=== PATIENT | male | born 1935 | race Hispanic/Latino ===

== ENCOUNTER 2018-09-12 14:20 | Inpatient (IN) | payer OTHER ==
[2018-09-12 15:20] LABS: #Monocytes 0.5 thou/uL (0.11-0.59); #Neutrophils 4.6 thou/uL (1.40-6.50); %Basophils 0.5 % (0.0-1.0); %Eosinophils 0.4 % (0.0-10.0); %Monocytes 7.6 % (0.0-10.0); %Neutrophils 75.5 % (42.0-75.0); Hemoglobin 10.9 g/dL (14.0-18.0); Mean Corpuscular HGB CONC 33.1 g/dL (32.0-36.0); Mean Corpuscular Hemoglobin 31.4 pg (27.0-31.0); Mean Corpuscular Volume 94.8 fL (78.0-98.0); Mean Platelet Volume 6.4 fL (7.4-10.4); Platelet Count 283 thou/uL (130-400); Red Blood Cell (RBC) Count 3.48 mill/uL (4.70-6.10)
--- NOTE | 2018-09-12 15:37 | RAD ---
Chest AP view INDICATION: Hypoxemia COMPARISON: None FINDINGS: Lungs:The lungs are clear Cardiac silhouette pulmonary vasculature:The cardiomediastinal silhouette appears within normal limit s. Pleural spaces:No pleural effusion or pneumothorax is demonstrated. Upper abdomen:There is a gas-filled intercalated large bowel underlies the right hemidiaphragm. Gas-f illed stomach underlies the left hemidiaphragm. Osseous structures: No acute osseous abnormality. Additional findings:None. IMPRESSION: No acute cardiopulmonary abnormality.
[2018-09-12 15:43] LABS: ALT (SGPT) 8 U/L (8-55); AST (SGOT) 15 U/L (5-34); Albumin 2.2 g/dL (3.4-4.8); Alkaline Phosphatase 127 U/L (40-150); Anion Gap 14 mmol/L (10-20); BUN (Urea Nitrogen) 23 mg/dL (8.4-25.7); Bilirubin, Total 0.5 mg/dL (0.2-1.2); Calc. Creatinine Clearance 0 mL/min (70-130); Carbon Dioxide 24 mmol/L (23-31); Chloride 105 mmol/L (98-107); Estimated GFR-MDRD 38; Globulin 3.2 g/dL (2.4-3.5); Glucose 83 mg/dL (83-110); Potassium 3.3 mmol/L (3.5-5.1); Protein, Total 5.4 g/dL (5.8-8.1); Sodium 140 mmol/L (136-145)
[2018-09-12 15:58] LABS: Calcium 5.3 mg/dL (7.8-10.44)
[2018-09-12] MEDS ORDERED: Calcium Gluc 4.6 MEQ/10 ML (100 MG/ML) ONE (16:38)
[2018-09-12] MEDS ORDERED: Magnesium 2 GM/50 ML BAG (IN WATER) ONE (17:37)
[2018-09-12] MEDS ORDERED: Aspirin Chewable 81 MG TAB ONE (19:09)
[2018-09-12] MEDS ORDERED: HYDROcodone/Acetaminophen 5/325 mg Tablet PO PRN ×2 (19:20)
[2018-09-12] MEDS ORDERED: Ondansetron ODT 4 MG TAB SL PRN (19:20)
[2018-09-12] MEDS ORDERED: Acetaminophen 325 MG TAB PO PRN ×2 (19:20→19:37)
[2018-09-12] MEDS ORDERED: Ondansetron PF 4 MG/2 ML Vial IVP PRN (19:20)
[2018-09-12 19:29] LABS: CKMB 2.9 ng/mL (0-6.6)
[2018-09-12] MEDS ORDERED: Sodium Chloride 0.9% 1,000 ML IV SCH (19:30)
[2018-09-12] MEDS ORDERED: Guaifenesin DM 100-10/5 ML UDCUP PO PRN (19:37)
[2018-09-12] MEDS ORDERED: Senokot S 8.6-50 MG TAB PO PRN (19:37)
[2018-09-12] MEDS ORDERED: Bisacodyl 10 MG SUPP PR PRN (19:37)
[2018-09-12] MEDS ORDERED: Diltiazem 125 MG in Sodium Chloride 0.9% 100 ML IVPB SCH (19:45)
--- NOTE | 2018-09-12 20:49 | HP ---
REASON FOR ADMISSION: AFib with RVR, hypocalcemia, possible acute kidney injury , hypokalemia, hypoalbuminemia, likely chronic. HISTORY OF PRESENTING ILLNESS: The patient gives history of feeling dizzy this morning. He was about to faint. He was leaning onto the wall and somebody held him. He was checked for saturations and it was 70% in the detention facility. He was placed on 2 L nasal cannula and brought here. The patient states he has had a chronic history of dizziness. Has no complaints of chest pain or palpitation. No complaints of shortness of breath. He appears ill. He is also a very poor historian. 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 He has been in the detention system for last 32 years or so now. No history of cough or expectoration. No history of fever. No complaints of abdominal pain, diarrhea, or vomiting. PAST MEDICAL AND SURGICAL HISTORY: The papers accompanying the patient from detention system states that he has history of AFib/flutter, chronic anemia, history of Crohn disease, which the patient states was diagnosed on colonoscopy where they found blisters 2 years back. Chronic edema, benign prostatic hypertrophy, GERD, chronic pain in his ankle and foot with unclear diagnosis per detention facility. CURRENT MEDICATIONS: These have not accompanied the patient and I will try to obtain the same from the detention facility. The patient does not remember what medications he is on. ALLERGIES: HE STATES HE IS NOT ALLERGIC TO ANY MEDICATIONS. PERSONAL HISTORY: Does not abuse alcohol or drugs. No history of smoking. The patient has been in detention from last 32 years. FAMILY HISTORY: Mother at the age of 55 years, likely from [place] as far as he knows. Father at the age of 73 years from natural causes as far as he knows. He states he is single. He apparently has 7 grand kids, but no children as such. They all live in [place]. He has a niece, who lives in [place]. CODE STATUS: Full. REVIEW OF SYSTEMS: CONSTITUTIONAL: Negative for weight loss or gain, ability to conduct usual activities. SKIN: Negative for rash, itching. EYES: Negative for double vision, pain. ENT/MOUTH: Negative for nose bleeding, neck stiffness, pain, tenderness. CARDIOVASCULAR: Negative for palpitations, dyspnea on exertion, orthopnea. RESPIRATORY: Negative for shortness of breath, wheezing, cough, hemoptysis, fever or night sweats. GASTROINTESTINAL: Negative for poor appetite, abdominal pain, heartburn, nausea , vomiting, constipation, or diarrhea. GENITOURINARY: Negative for urgency, frequency, dysuria, nocturia. MUSCULOSKELETAL: Negative for pain, swelling. NEUROLOGIC/PSYCHIATRIC: Negative for anxiety, depression. ALLERGY/IMMUNOLOGIC: Negative for skin rash, bleeding tendency. PHYSICAL EXAMINATION: GENERAL: The patient is an 83-year-old male, who is currently not in any acute distress. VITAL SIGNS: Blood pressure 110/32, later dropped down to 90/60 after getting Cardizem IV push and is back up to 106 at present that is the systolic; pulse 116 per minute; respiratory rate 18 per minute; saturating 100% on room air; temperature is 98.8 degrees Fahrenheit. NECK: Supple. No elevated JVD. HEENT: Eyes; extraocular muscles intact. Pupils are reacting to light. Oral cavity, mucous membranes are dry. No exudates or congestion. CARDIOVASCULAR: S1 and S2 heard. Irregular rhythm. RESPIRATORY: Air entry 1+ bilateral. Scattered rhonchi plus bilateral. No rales or wheezes. ABDOMEN: Soft. Bowel sounds heard. No tenderness, rigidity, or guarding. EXTREMITIES: There is 1+ peripheral edema. No calf tenderness. VASCULAR: Peripheral pulses 1+ bilateral. No ischemic ulcerations or gangrene. CENTRAL NERVOUS SYSTEM: No gross focal deficits noted. The patient is awake and responds well to verbal questions. He is not fully oriented. PSYCHIATRIC: No obvious hallucinations or delusions. LABORATORY DATA: EKG done shows AFib with RVR at 130 beats per minute. Chest x -ray done shows no acute cardiopulmonary abnormality. White count of 6, H and H of 10 and 33, platelet count 283, MCV is 94 with 75% neutrophils. Potassium 3.3, serum bicarb 24, BUN 23, creatinine 1.7, serum glucose 83, calcium level is 5.3, albumin is 2.2, corrected calcium is around 6.4. Troponin I of 0.04, CK-MB 2.9. Alkaline phosphatase 127, total protein is 5.4, globulin is 3.2. CLINICAL IMPRESSION AND PLAN: The patient will be admitted to telemetry for atrial fibrillation with rapid ventricular response. He is currently under observation and will likely be switched over to inpatient status if his current electrolyte abnormality and atrial fibrillation does not get controlled in the next 24 hours. He has received magnesium sulfate 2 g IV x1 in the ER, calcium gluconate 2 g IV in the ER, Cardizem IV push 5 mg and 10 mg IV push. We will continue him at 5 mg an hour Cardizem drip and add Lopressor 25 mg twice daily. Aspirin 81 mg will be continued from tomorrow. The patient has reversal of his albumin-globulin ratio and has very low protein levels. The patient likely is chronically malnourished. He also carries a diagnosis of Crohn disease, but states he passes stool only once at night and it is semi solid as far as he knows. There is no blood or mucus in it as far as he knows. Again, the patient is a very poor historian. He also has chronic dizziness. We will obtain MRI brain to rule out posterior fossa infarct. A CT of the abdomen and pelvis in view of low calcium, low albumin, to rule out mass. Urine and protein electrophoreses will be obtained as well. Echo with 2D Doppler for left ventricular function and to rule out thrombus. Iron indices, ferritin levels, human immunodeficiency virus, acute hepatitis panel, PSA levels, TB QuantiFERON, vitamin D 1,25 and 25-hydroxy levels, and intact PTH levels will be obtained as well. We will try to obtain his medication list from his detention unit. The patient appears chronically ill as well. He is 83 years old. He apparently lives in the general detention population per correction officers who are here in the room. We will consult Dr. Sousa who is on-call for Cardiology. He wants to be a full code. Job ID: [id number] MTDD
[2018-09-12] MEDS ORDERED: Famotidine 20 MG TAB PO SCH (21:00)
[2018-09-12 21:11] LABS: INR-International Normal Ratio 1.1; PTT 26.1 SEC (22.9-36.1); Prothrombin Time 14.1 SEC (12.0-14.7)
[2018-09-12 21:17] LABS: Phosphorus 2.4 mg/dL (2.3-4.7)
[2018-09-12 21:19] LABS: Magnesium 1.3 mg/dL (1.6-2.6)
[2018-09-12 21:39] LABS: Ferritin 144.04 ng/mL (22-322)
[2018-09-12 21:52] LABS: Folate (Folic Acid) 8.3 ng/mL (7.0-31.4)
[2018-09-12] MEDS: Calcium Carbonate 500 MG ChewTAB PO SCH (22:13)
--- NOTE | 2018-09-12 22:14 | CT ---
CT abdomen and pelvis noncontrast HISTORY: Abdominal pain. COMPARISON: 06/24/2015. FINDINGS: There is atrophy of the cortex of each kidney. No urinary tract obstruction or calcificatio n are apparent. Lack of IV contrast limits evaluation of the soft tissues. Oral contrast was administered. No evidenc e of bowel obstruction. Cysts of the kidneys and liver. Calcification within the arterial structures. Urinary bladder is unremarkable. Subtle circumferential wall thickening involving a loop of jejunum in the left midabdomen. Stranding in the adjacent fat. Less prominent scattered areas of short segment circumferential wall thickening involves the small bowel throughout the remainder of th e abdomen. No focal abnormalities of the pancreas are apparent. IMPRESSION: No evidence of bowel obstruction. Subtle scattered areas of segmental small bowel wall th ickening. A nonspecific finding. Inflammatory bowel disease must be considered. Atherosclerosis.
[2018-09-12 22:18] LABS: Troponin I 0.056 ng/mL (< 0.028)
[2018-09-12] MEDS: Metoprolol Tartrate 25 MG TAB PO SCH (22:23)
[2018-09-12 23:34] LABS: Bilirubin Small (Negative); Blood, Urine Negative (Negative); Glucose, Urine (Dipstick) Negative (Negative); Leukocyte Negative (Negative); Nitrite Negative (Negative); Protein, Urine (Dipstick) 30 mg/dL (Neg-Trace); Urobilinogen 0.2 mg/dL (Less than 2)
[2018-09-12 23:41] LABS: Bacteria/HPF None Seen HPF (None Seen); Clarity Clear (Clear); RBC/HPF None Seen HPF (0-3); Squamous Epithelial 0-3 HPF (0-3); Urine Culture Reflex No No; WBC/HPF 0-3 HPF (0-3)
[2018-09-13 00:28] LABS: HBCM Index 0.05 S/CO (0-0.79); HBSAg Index 0.29 S/CO (0-0.99); HIV (1/2) Antibody/Antigen Non-Reactive (NonReactive); HIV 1/2 INDEX 0.13 S/CO (<1.00); Hep A IgM AB Non-Reactive (NonReactive); Hep B Surf Ag Non-Reactive S/CO (NonReactive); Hep C IgG Ab Non-Reactive (NonReactive); Hepatitis B Core IgM Abs Non-Reactive (NonReactive); PSA-Asymptomatic (SCREENING) 4.88 ng/mL (0-4.0); Vitamin D, 25 Hydroxy Less than 3.4 ng/ml (> 30.0)
[2018-09-13 01:49] LABS: Troponin I 0.074 ng/mL (< 0.028)
[2018-09-13 05:57] LABS: #Eosinphils 0.1 thou/uL (0.0-0.7); #Lymphocytes 1.4 thou/uL (1.20-3.40); #Monocytes 0.4 thou/uL (0.11-0.59); #Neutrophils 2.3 thou/uL (1.40-6.50); %Basophils 1.1 % (0.0-1.0); %Eosinophils 1.6 % (0.0-10.0); %Monocytes 9.3 % (0.0-10.0); %Neutrophils 54.1 % (42.0-75.0); Hemoglobin 10.4 g/dL (14.0-18.0); Mean Corpuscular HGB CONC 32.8 g/dL (32.0-36.0); Mean Corpuscular Hemoglobin 31.5 pg (27.0-31.0); Mean Corpuscular Volume 96.1 fL (78.0-98.0); Mean Platelet Volume 6.7 fL (7.4-10.4); Platelet Count 252 thou/uL (130-400); RBC Distribution Width 13.1 % (11.5-14.5); Red Blood Cell (RBC) Count 3.29 mill/uL (4.70-6.10); White Blood Cell (WBC) Count 4.2 thou/uL (4.8-10.8)
[2018-09-13 06:19] LABS: ALT (SGPT) 8 U/L (8-55); AST (SGOT) 16 U/L (5-34); Alkaline Phosphatase 120 U/L (40-150); Anion Gap 11 mmol/L (10-20); BUN (Urea Nitrogen) 22 mg/dL (8.4-25.7); Bilirubin, Total 0.3 mg/dL (0.2-1.2); Calc. Creatinine Clearance 30 mL/min (70-130); Carbon Dioxide 23 mmol/L (23-31); Chloride 108 mmol/L (98-107); Estimated GFR-MDRD 46; Globulin 3.1 g/dL (2.4-3.5); Glucose 69 mg/dL (83-110); Protein, Total 5.1 g/dL (5.8-8.1); Sodium 139 mmol/L (136-145)
[2018-09-13 06:22] LABS: Calcium 5.5 mg/dL (7.8-10.44)
[2018-09-13] MEDS ORDERED: Enoxaparin Sodium 40 MG/0.4 ML SYRINGE SC SCH (09:00)
[2018-09-13] MEDS ORDERED: Digoxin 0.5 MG/2 ML AMP ONE (09:55)
[2018-09-13] MEDS ORDERED: Calcium Chloride 1 GM/10 ML Abboject SYRINGE IVP SCH (10:00)
[2018-09-13] MEDS ORDERED: Digoxin 0.5 MG/2 ML AMP SLOW IVP SCH (10:00)
[2018-09-13] MEDS: Calcium Carbonate 500 MG ChewTAB PO SCH ×2 (10:36→20:47)
[2018-09-13] MEDS: Calcitriol 0.25 MCG CAP PO SCH (10:37)
[2018-09-13] MEDS: Aspirin 81 mg Enteric Coated Tablet PO SCH (10:37)
[2018-09-13] MEDS: Metoprolol Tartrate 25 MG TAB PO SCH ×2 (10:37→21:30)
[2018-09-13] MEDS: Ergocalciferol 1.25 MG(50,000 UNITS) CAP PO SCH (11:07)
--- NOTE | 2018-09-13 11:35 | PDOC.HOSPP ---
- Subjective Subjective: has rvr with rates going upto 160's, does not c/o palp or chest pain or sob ate his breakfast this am has no specific complaints - Objective Vital Signs & Weight: Vital Signs (12 hours) Temp Pulse Resp BP Pulse Ox 09/13/18 10:58 150 H 09/13/18 10:35 99 09/13/18 08:00 98.4 F 90 18 91/61 100 09/13/18 03:55 98.1 F 99 18 101/69 98 09/13/18 00:30 101 H 14 98/62 100 Weight Weight 121 lb 8 oz Result Diagrams: 09/13/18 05:00 09/13/18 05:00 ROS - Review of Systems All systems: All other ROS were reviewed and found negative. - Medication Medications: Active Medications Generic Name Dose Route Start Last Admin Trade Name Freq PRN Reason Stop Dose Admin Aspirin 81 mg 09/13/18 09:00 09/13/18 10:37 Ecotrin PO 81 mg DAILY ELIE Administration Calcitriol 0.25 mcg 09/13/18 09:00 09/13/18 10:37 Rocaltrol PO 0.25 mcg DAILY ELIE Administration Calcium Carbonate 1,000 mg 09/12/18 21:00 09/13/18 10:36 Tums PO 1,000 mg BID ELIE Administration Calcium Chloride 1 gm 09/13/18 10:00 09/13/18 11:07 Calcium Chloride IVP 09/13/18 12:00 1 gm NOW ELIE Administration Cholecalciferol 1,000 units 09/13/18 09:00 09/13/18 10:37 Vitamin D3 PO 1,000 units DAILY ELIE Administration Digoxin 0.25 mg 09/13/18 10:00 09/13/18 10:35 Lanoxin SLOW IVP 09/13/18 12:00 0.25 mg NOW ELIE Administration Enoxaparin Sodium 40 mg 09/13/18 09:00 09/13/18 10:38 Lovenox SC 40 mg 0900 ELIE Administration Ergocalciferol 1.25 mg 09/13/18 09:00 09/13/18 11:07 Drisdol PO 1.25 mg Q7DAYS ELIE Administration Magnesium Sulfate 1 gm/ Sodium 102 mls @ 100 mls/hr 09/13/18 10:00 09/13/18 10:38 Chloride IVPB 09/13/18 12:00 102 mls NOW ELIE Administration Metoprolol Tartrate 25 mg 09/12/18 21:00 09/13/18 10:37 Lopressor PO Not Given BID ELIE Sodium Chloride 10 ml 09/12/18 21:00 09/13/18 11:07 Flush - Normal Saline IVF 10 ml Q12HR ELIE Administration - Exam NAD, awake alert Eye: PERRL, anicteric sclera ENT: no oropharyngeal lesions, moist mucosa Neck: supple, no JVD Heart: no murmur, irregular Respiratory: CTAB, no rales Gastrointestinal: soft, non-tender, normal bowel sounds Extremities: no cyanosis, no edema Neurological: CN's grossly intact, no focal deficits Psychiatric: normal affect, A&O x 3 Hosp A/P (1) Atrial fibrillation with RVR Code(s): I48.91 - UNSPECIFIED ATRIAL FIBRILLATION Status: Acute (2) Severe malnutrition Code(s): E43 - UNSPECIFIED SEVERE PROTEIN-CALORIE MALNUTRITION Status: Chronic (3) multiple electrolyte abnormalities Status: Acute (4) Hypocalcemia Code(s): E83.51 - HYPOCALCEMIA Status: Acute (5) AGUSTIN (acute kidney injury) Code(s): N17.9 - ACUTE KIDNEY FAILURE, UNSPECIFIED Status: Acute (6) Metabolic acidosis Code(s): E87.2 - ACIDOSIS Status: Acute (7) Chronic anemia Code(s): D64.9 - ANEMIA, UNSPECIFIED Status: Chronic (8) Nutritional deficiency Code(s): E63.9 - NUTRITIONAL DEFICIENCY, UNSPECIFIED Status: Chronic - Plan replace electrolytes, Ca and Mg iv, oral tums bid, mgo bid digoxin 0.5mg x1 iv now is off cardizem drip for hypotension echo pending MRI brain is pending, has long h/o dizziness asp, lopressor overall prognosis guarded
--- NOTE | 2018-09-13 14:52 | MRI ---
MRI Brain WO Con: 09/13/2018 12:00 AM CLINICAL HISTORY: Dizziness Rule out CVA. TECHNIQUE: Multiplanar, multisequence images were obtained of the brain. COMPARISON: None. FINDINGS: Motion artifact heavily limits image detail Extra axial spaces: There is [id number] generalized cerebral and cerebellar atrophy. Hemorrhage: None. Ventricular system: Normal in size and morphology for the patient's age. Basal cisterns: Normal. Cerebral parenchyma: There is mild chronic small vessel white matter ischemic change. Midline shift: None. Cerebellum: Normal. Brainstem: Normal. OTHER: Calvarium: There are bilateral mastoid effusions. Vascular system: Normal. Visualized Paranasal sinuses: There is mild mucosal thickening ethmoid air cells. Visualized Orbits: Normal. Visualized upper cervical spine: Normal. Sella and skull base: Normal. IMPRESSION: 1. No acute intracranial abnormality. 2. Mild to moderate generalized cerebral and cerebellar atrophy. 3. Mild chronic small vessel white matter ischemic change 4. Bilateral mastoid effusions.
[2018-09-13] MEDS: Digoxin 0.5 MG/2 ML AMP SLOW IVP SCH ×2 (16:44→22:04)
--- NOTE | 2018-09-13 18:38 | CON ---
DATE OF CONSULTATION: 09/13/2018 INDICATION FOR CONSULTATION: An 83-year-old patient with atrial fibrillation with rapid ventricular response. We are asked to see the patient to assist with control of atrial fibrillation. HISTORY OF PRESENT ILLNESS: This is an 83-year-old gentleman, who has been in the [facility] system for over 30 years and has a history of chronic atrial fibrillation. According to the records from the [facility], he was presented after he had an episode of being dizzy. He almost passed out. He was found to have a decrease in O2 saturations. He was admitted here, was found to have some atrial fibrillation with rapid ventricular response. Also was found to have hypokalemia and hypocalcemia as well. He also had decreased O2 saturations, which now have improved. He did also explain that he had one short episode lasting for just a few seconds. Also some chest discomfort, which was sharp, sudden onset, and then resolved. He has a long history of also Crohn disease. Fortunately, he is not on any medications at the facility for his atrial fibrillation or Crohn disease. He also has a history of chronic anemia. At this time, he is pain free. His heart rate has been somewhat better controlled after being given IV digoxin. He was given IV diltiazem and became hypotensive. He has also been placed on low-dose of a beta amelia, which he seems to be tolerating at this time. PAST MEDICAL HISTORY: Significant for atrial fibrillation and flutter, anemia, Crohn disease, chronic edema, chronic anemia as well as benign prostatic hypertrophy, and gastroesophageal reflux disease. He has chronic pain in the left ankle after a previous injury. SOCIAL HISTORY: He has been in the [facility] system for over 30 years. He has no alcohol or tobacco abuse. FAMILY HISTORY: Noncontributory. ALLERGIES: NONE. MEDICATIONS: Prior to admission were none. 1. At this time, he has been placed on magnesium. 2. He has been given magnesium and calcium. 3. He was tried on diltiazem, Lopressor 25 b.i.d., aspirin 81 mg a day, and was given a dose of digoxin. 4. He has also been given calcium replacements. 5. He has also been given Lovenox just for DVT prophylaxis as well as Pepcid and other p.r.n. medications. REVIEW OF SYSTEMS: He has decreased hearing. He complained of no significant chest pain or shortness of breath. No GI complaints except for the chronic Crohn disease. He does have occasional episodes of fecal incontinence apparently. He denies any urinary problems. Musculoskeletal, he complains of left ankle pain, has difficulty walking and usually walks with a walker. He also has right knee pain due to arthritis. He has had no history of seizures or syncope. PHYSICAL EXAMINATION: GENERAL: Reveals an elderly, thin, malnourished patient. VITAL SIGNS: Blood pressure 101/69 and heart rate is anywhere between 99 to 150, it is better controlled after being given digoxin and beta blockers. He is afebrile. Respiratory rate is 18. HEENT: Reveals head to be normocephalic and atraumatic. Carotid pulses are present. Did not hear any bruits. CHEST: Clear to auscultation without rales, rhonchi, or wheezing. CARDIOVASCULAR: Heart sounds are somewhat distant. He has an irregularly irregular rhythm. I do not hear any gross murmurs. ABDOMEN: Soft and nontender. EXTREMITIES: Showed no clubbing or cyanosis. He does have evidence of arthritis in right knee and also stiffness of the left ankle. Pedal pulses are difficult to palpate. However, the patient is in restraints. It was unable to adequately evaluate the pedal pulses. NEUROLOGIC: The patient appears to be intact. I do not see any gross focal motor deficits of the patient. He does have normal sensation. SKIN: Warm and dry. PSYCHIATRIC: His psychosocial status appears to be relatively stable. LABORATORY DATA: EKG shows atrial fibrillation with a rapid ventricular response. At times, almost appears to be in SVT, this may be actually flutter. He may have atrial fibrillation and flutter. There was some mention previously in his past medical records from after discussion with the Medical Department at [facility] that he may also have some atrial flutter. There has been no sinus rhythm since the patient has been here. Chest x-ray was unremarkable. IMPRESSION AND PLAN: 1. Atrial fibrillation, possible at times flutter with rapid ventricular response. We will continue medical management to hopefully decrease the heart rate and maintain this whether or not the patient has been refusing taking medications or just not been given medications due to various reasons, it is unclear, but he certainly will need something for rate control in this gentleman. We will also consider whether or not he is a candidate for anticoagulation. However, he has chronic anemia and Crohn disease, it is highly unlikely he will be able to tolerate medications. I do not know if he has had any GI workup in the past. We will continue to follow this. 2. Crohn disease, which will be dealt with by the Primary Care Service. He may need to have GI evaluation. 3. Renal insufficiency. We are uncertain whether or not this is a new finding or not, but the creatinine has improved since yesterday. He may have been slightly dehydrated, but his BUN was 23 with a creatinine 1.7. This morning, creatinine is 1.47, has improved after volume replacement. 4. Hypokalemia and hypocalcemia. Both of these will be replaced and would advise to repeat these levels, this may be due to some diarrhea in the patient due to his Crohn disease and also due to malnutrition. His laboratory data also showed a BNP of 212, which is slightly elevated. He may have diastolic dysfunction. I believe an echocardiogram has been ordered. We will evaluate the echocardiogram and further recommendations will depend on the results of the echocardiogram. 5. Chronic anemia. This most likely is due to his Crohn disease, but may need further evaluation. At this time, I will continue his medications with the low-dose beta blockers. He may not be able to tolerate the digoxin due to his renal insufficiency. He has only had one dose of 0.25 mg and I will continue to at least digitalize the patient. This would not be a contraindication event if he has renal insufficiency, just to load the patient with digoxin and see if his rate will be under better control, but we will continue low-dose of beta blockers. If he is not able to tolerate diltiazem, depending on the echocardiogram results, even he may be a candidate for ablation of the AV node. If we cannot control the heart rate, but then would require pacemaker insertion. Hopefully, would not come to that. Job ID: [id number]
[2018-09-13] MEDS ORDERED: Carvedilol 3.125 MG TAB PO SCH (19:30)
--- NOTE | 2018-09-13 19:54 | RAD ---
Right hand 3 views HISTORY: Fall. Hand injury. FINDINGS: Mild joint space narrowing and osteophytosis. Osseous structures are markedly demineralized . No acute fracture or dislocation are apparent. Calcification within the arterial structures. IMPRESSION: No acute osseous abnormalities are demonstrated Osteoporosis. Atherosclerosis.
--- NOTE | 2018-09-13 19:58 | RAD ---
RIGHT ELBOW TWO VIEWS: INDICATIONS: History of fall; rule out fracture. COMPARISON: None. FINDINGS: No definite acute fracture or subluxation is evident. No roberto joint capsular distention is evident. There is some enthesopathic change of the olecranon. IMPRESSION: 1. No definite acute osseous abnormality. 2. Olecranon enthesopathy. POS: BH
--- NOTE | 2018-09-13 20:01 | RAD ---
RIGHT FOREARM TWO VIEWS: INDICATIONS: Fall. Rule out fracture. COMPARISON: None. FINDINGS: There is enthesopathic change of the olecranon. No acute fracture or subluxation is evident. There is diffuse osteopenia. There are scattered vascular calcifications. IMPRESSION: No acute osseous abnormality. POS: BH
[2018-09-13] MEDS: Famotidine 20 MG TAB PO SCH (20:48)
[2018-09-14] MEDS: Calcitriol 0.25 MCG CAP PO SCH (08:11)
[2018-09-14] MEDS: Calcium Carbonate 500 MG ChewTAB PO SCH ×2 (08:11→20:59)
[2018-09-14] MEDS: Aspirin 81 mg Enteric Coated Tablet PO SCH (08:11)
[2018-09-14] MEDS ORDERED: Enoxaparin Sodium 30 MG/0.3 ML SYRINGE SC SCH (09:00)
[2018-09-14 09:01] LABS: #Lymphocytes 0.9 thou/uL (1.20-3.40); #Monocytes 0.4 thou/uL (0.11-0.59); #Neutrophils 2.3 thou/uL (1.40-6.50); %Basophils 0.5 % (0.0-1.0); %Eosinophils 0.8 % (0.0-10.0); %Monocytes 10.6 % (0.0-10.0); %Neutrophils 63.1 % (42.0-75.0); Hemoglobin 10.8 g/dL (14.0-18.0); Mean Corpuscular HGB CONC 32.3 g/dL (32.0-36.0); Mean Corpuscular Hemoglobin 31.3 pg (27.0-31.0); Mean Platelet Volume 7.6 fL (7.4-10.4); Platelet Count 215 thou/uL (130-400); Red Blood Cell (RBC) Count 3.44 mill/uL (4.70-6.10); White Blood Cell (WBC) Count 3.6 thou/uL (4.8-10.8)
[2018-09-14 09:20] LABS: ALT (SGPT) 7 U/L (8-55); AST (SGOT) 16 U/L (5-34); Albumin 1.8 g/dL (3.4-4.8); Alkaline Phosphatase 108 U/L (40-150); Anion Gap 10 mmol/L (10-20); BUN (Urea Nitrogen) 20 mg/dL (8.4-25.7); Bilirubin, Total 0.5 mg/dL (0.2-1.2); Calc. Creatinine Clearance 34 mL/min (70-130); Carbon Dioxide 22 mmol/L (23-31); Chloride 107 mmol/L (98-107); Estimated GFR-MDRD 52; Globulin 3.1 g/dL (2.4-3.5); Glucose 64 mg/dL (83-110); Magnesium 1.4 mg/dL (1.6-2.6); Potassium 3.4 mmol/L (3.5-5.1); Protein, Total 4.9 g/dL (5.8-8.1); Sodium 136 mmol/L (136-145)
[2018-09-14] MEDS: Metoprolol Tartrate 25 MG TAB PO SCH (09:23)
[2018-09-14 09:30] LABS: Calcium 5.6 mg/dL (7.8-10.44)
[2018-09-14] MEDS: Carvedilol 3.125 MG TAB PO SCH ×2 (09:41→17:52)
--- NOTE | 2018-09-14 11:13 | PDOC.CTH ---
Cardiology Progress Note - Subjective The pt seen and examined. No overnight events. No cardiac complaints. - Objective Vital Signs Temp Pulse Resp BP BP Pulse Ox 09/14/18 08:06 97.7 F 96 18 95/63 98 09/14/18 04:00 97.3 F L 95 20 82/58 L 82/58 L 99 Weight 122 lb 09/13/18 09/14/18 09/15/18 06:59 06:59 06:59 Intake Total 480 Output Total 352 Balance 128 - Physical Examination General/Neuro: alert & oriented x3 Neck: no JVD present Lungs: CTA Heart: other: (irregular) Abdomen: soft Extremities: other: (No edema) - Telemetry Telemetry Rhythm: afib with HR 90-100s - Labs Result Diagrams: 09/14/18 08:40 09/14/18 08:40 Troponin/CKMB CK-MB (CK-2) 2.9 ng/mL (0-6.6) 09/12/18 18:28 Troponin I 0.074 ng/mL (< 0.028) H 09/13/18 01:15 - Assessment/Plan 1. Afib with RVR - HR well controlled with Coreg 3.125mg 1/2 tab BID; On ASA 81mg qd; no OAC due to hx of chronic Anemia and Crohn disease. 2. 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 EP consult for low EF. 3. AGUSTIN - unchanged 4. Hypokalemia 5. Hypocalcemia - 6. Crohn disease 7. Chronic Anemia 8. BPH 9. Dizziness MAR reviewed * Echo on 09/13/2018 with EF 20-25%, grade I dd, Afib, mod dilated LA, mild ERA , mild MR, and trace AR. Pt. seen and eval. by me. He denies any cardiac complaints. I spoke with the [facility] and he can have a Life-Vest apparently. This would be indicated with the severe decr. in the EF. I am uncertain of the etiology. He would either benefit from a stress test to evaluate for ischemia or a cardiac cath to evaluate the coronary status as a possible etiology of the CMY. The BP has been on the low side today and the Coreg is at a low dose. The HR is improved. The renal function is also improved and I will continue low dose digoxin for rate control and stop the diltiazem with the decr. EF. He does not have CHF symptoms at this time. With the Afib and a history of Chrons dz. he is somewhat at risk for OAC but not an absolute contraindication. i would like to see the Ca and K more stable prior to cardiac cath. or stress test. a stress test wpould likely give more info as to the etiology of the CMY or at least rule out severe CAD. gjm Review of Systems - Review of Systems Constitutional: reports: no symptoms reported EENTM: reports: no symptoms reported Respiratory: reports: no symptoms reported Cardiac (ROS): reports: no symptoms reported ABD/GI: reports: no symptoms reported : reports: no symptoms reported Musculoskeletal: reports: no symptoms reported
--- NOTE | 2018-09-14 16:17 | PDOC.HOSPP ---
- Objective Vital Signs & Weight: Vital Signs (12 hours) Temp Pulse Pulse Pulse Resp BP BP 09/14/18 12:33 98.1 F 97 18 09/14/18 11:40 80 102 H 82/52 L 88/62 L 09/14/18 08:06 97.7 F 96 18 BP Pulse Ox 09/14/18 12:33 123/23 L 93 L 09/14/18 11:40 09/14/18 08:06 95/63 98 Weight Admit Weight 121 lb 8 oz Weight 122 lb I&O: 09/13/18 09/14/18 09/15/18 06:59 06:59 06:59 Intake Total 480 Output Total 352 Balance 128 Result Diagrams: 09/14/18 08:40 09/14/18 08:40 ROS - Review of Systems All systems: All other ROS were reviewed and found negative. - Medication Medications: Active Medications Generic Name Dose Route Start Last Admin Trade Name Freq PRN Reason Stop Dose Admin Aspirin 81 mg 09/13/18 09:00 09/14/18 08:11 Ecotrin PO 81 mg DAILY ELIE Administration Calcitriol 0.25 mcg 09/13/18 09:00 09/14/18 08:11 Rocaltrol PO 0.25 mcg DAILY ELIE Administration Calcium Carbonate 1,000 mg 09/12/18 21:00 09/14/18 08:11 Tums PO 1,000 mg BID ELIE Administration Carvedilol 1.5625 mg 09/14/18 08:00 09/14/18 09:41 Coreg PO 1.5625 mg BID- ELIE Administration Cholecalciferol 1,000 units 09/13/18 09:00 09/14/18 08:11 Vitamin D3 PO 1,000 units DAILY ELIE Administration Enoxaparin Sodium 30 mg 09/14/18 09:00 09/14/18 08:11 Lovenox SC 30 mg 0900 ELIE Administration Ergocalciferol 1.25 mg 09/13/18 09:00 09/13/18 11:07 Drisdol PO 1.25 mg Q7DAYS ELIE Administration Famotidine 20 mg 09/13/18 21:00 09/13/18 20:48 Pepcid PO 20 mg QPM ELIE Administration Sodium Chloride 10 ml 09/12/18 21:00 09/14/18 08:11 Flush - Normal Saline IVF 10 ml Q12HR ELIE Administration - Exam Heart: RRR, no murmur, no gallops, no rubs Respiratory: CTAB, no wheezes, no rales, no ronchi Gastrointestinal: soft, non-tender, non-distended, normal bowel sounds Extremities: no cyanosis, no clubbing, no edema Neurological: CN's grossly intact, normal sensation to touch Hosp A/P (1) Atrial fibrillation with RVR Code(s): I48.91 - UNSPECIFIED ATRIAL FIBRILLATION Status: Acute (2) AGUSTIN (acute kidney injury) Code(s): N17.9 - ACUTE KIDNEY FAILURE, UNSPECIFIED Status: Acute (3) Hypocalcemia Code(s): E83.51 - HYPOCALCEMIA Status: Acute (4) Nutritional deficiency Code(s): E63.9 - NUTRITIONAL DEFICIENCY, UNSPECIFIED Status: Chronic (5) Severe malnutrition Code(s): E43 - UNSPECIFIED SEVERE PROTEIN-CALORIE MALNUTRITION Status: Chronic (6) Systolic heart failure Code(s): I50.20 - UNSPECIFIED SYSTOLIC (CONGESTIVE) HEART FAILURE Status: Acute - Plan * Atrial Fibrillation- his heart rate is better. He remains in AFIB however * Hypomagnesemia, and Hypokalemia- continue to replace * Chronic systolic heart failure- discussed with Cardiology- he may need life vest or defibrillator, this may have to be accomplished through [facility] * Malnutrition- continue nutritional support * AGUSTIN- improved * Crohn's disease- the patient at the time of my visit denied, abdominal pain, or diarrhea, however now he is complaining of some- will check stool for C. Diff , and will add Fecal leukocytes, and will monitor. He has not had treatment for this in years.
[2018-09-14] MEDS ORDERED: Calcium Gluconate 4.6 MEQ in Sodium Chloride 0.9% 100 ML IVPB SCH (16:30)
[2018-09-14] MEDS: Magnesium Oxide 400 MG TAB PO SCH (20:59)
[2018-09-14] MEDS: Famotidine 20 MG TAB PO SCH (20:59)
[2018-09-15] MEDS: Carvedilol 3.125 MG TAB PO SCH ×2 (09:26→16:12)
[2018-09-15] MEDS: Aspirin 81 mg Enteric Coated Tablet PO SCH (09:26)
[2018-09-15] MEDS: Digoxin 0.125 MG TAB PO SCH (09:26)
[2018-09-15] MEDS: Calcitriol 0.25 MCG CAP PO SCH (09:26)
[2018-09-15] MEDS: Calcium Carbonate 500 MG ChewTAB PO SCH ×2 (09:26→21:00)
[2018-09-15] MEDS: Magnesium Oxide 400 MG TAB PO SCH ×2 (09:26→21:00)
[2018-09-15] MEDS: Enoxaparin Sodium 40 MG/0.4 ML SYRINGE SC SCH (09:27)
--- NOTE | 2018-09-15 10:20 | CON ---
DATE OF CONSULTATION: REQUESTING PHYSICIAN: Veronica Paez MD REASON FOR CONSULTATION: Electrolyte abnormality secondary to hypocalcemia, hypokalemia, hypomagnesemia. IMPRESSION: 1. Multiple electrolyte deficiency. This is likely in the context of malabsorption and poor nutritional intake in this patient with GI pathology. 2. Hyperparathyroidism. This is not because of renal insufficiency. This is likely in the context of significant hypocalcemia. 3. Hypovitaminosis D also compounding the hypocalcemia as well as hyperparathyroidism. PLAN: 1. Replete calcium as well as vitamin D. We recommend use of 50,000 units of vitamin D and also to administer some active vitamin D . 2. Replete magnesium as well as the potassium. Magnesium is very important to be repleted in order to ensure that hypokalemia can be corrected. 3. The patient is to be placed on a regular diet. HISTORY OF PRESENT ILLNESS: An 83-year-old incarcerated gentleman who presented here with dizziness. He does have history of atrial fibrillation with rapid ventricular response and found to be severely hypocalcemic with elevated creatinine, hypokalemic, hypoalbuminemic, and elevated parathyroid hormone. Constellation of these findings necessitated renal consultation. PAST MEDICAL HISTORY: Significant for atrial fibrillation, aflutter, anemia, Crohn disease, reflux disease, BPH. MEDICATIONS: Reviewed and as documented on [employer]. ALLERGIES: NO KNOWN DRUG ALLERGIES. SOCIAL HISTORY: No alcohol, no tobacco, no illicit drug use. The patient has been incarcerated for the past 32 years. FAMILY HISTORY: Not significantly related to present illness. REVIEW OF SYSTEMS: Highly limited given that this patient is a very poor historian. PHYSICAL EXAMINATION: GENERAL: The patient was found to be somewhat ill looking, noted with the following vital signs. VITAL SIGNS: Afebrile, temperature 97.8, pulse 100, respiratory rate of 18, O2 saturation 100% with a blood pressure of . HEENT: Unremarkable. CARDIOVASCULAR: First and second heart sounds were heard. RESPIRATORY: Clear to auscultation. DIGESTIVE: Revealed a benign abdomen with positive bowel sounds. EXTREMITIES: No peripheral edema. SKIN: No new gross rash. LYMPHATICS: No peripheral lymphadenopathy. SUMMARY: An 83-year-old incarcerated gentleman who presented here and noted to have multiple electrolyte context of GI obstruction/malabsorption syndrome. Thank you for this consultation. We will follow with you. Job ID: [id number]
[2018-09-15 12:43] LABS: Anion Gap 6 mmol/L (10-20); BUN (Urea Nitrogen) 21 mg/dL (8.4-25.7); Calc. Creatinine Clearance 43 mL/min (70-130); Carbon Dioxide 28 mmol/L (23-31); Chloride 106 mmol/L (98-107); Estimated GFR-MDRD 70; Glucose 74 mg/dL (83-110); Magnesium 1.6 mg/dL (1.6-2.6); Potassium 3.4 mmol/L (3.5-5.1); Sodium 137 mmol/L (136-145)
[2018-09-15 12:49] LABS: Calcium 5.7 mg/dL (7.8-10.44)
[2018-09-15 13:10] LABS: Alpha 2 - Ur 13.8 % (.); Beta-Ur 23.3 % (.); Gamma-Ur 25.8 % (.); M-Spike,% Not Observed % (Not Observed); Protein, Urine 20.6 mg/dL (Not Estab.)
[2018-09-15 13:10] LABS: A/G Ratio 0.7 (0.7-1.7); Albumin 1.9 g/dL (2.9-4.4); Alpha 1 0.2 g/dL (0.0-0.4); Alpha 2 0.6 g/dL (0.4-1.0); Beta 0.8 g/dL (0.7-1.3); Gamma 1.2 g/dL (0.4-1.8); Globulin, Total 2.9 g/dL (2.2-3.9); M-Spike Not Observed g/dL (Not Observed)
--- NOTE | 2018-09-15 13:13 | PDOC.CTH ---
Cardiology Progress Note - Subjective The pt seen and examined. No overnight events. No cardiac complaints. - Objective Vital Signs Temp Pulse Resp BP BP Pulse Ox 09/15/18 12:00 97.9 F 86 18 91/59 L 09/15/18 07:41 97.7 F 92 18 92/58 L 100 09/15/18 03:05 98.6 F 99 18 82/59 L 97 Admit Weight 121 lb 8 oz Weight 119 lb 6.4 oz 09/14/18 09/15/18 09/16/18 06:59 06:59 06:59 Intake Total 480 1650 Output Total 352 1005 Balance 128 645 - Physical Examination General/Neuro: alert & oriented x3 Neck: no JVD present Lungs: CTA Heart: other: (irregular) Abdomen: soft Extremities: other: - Telemetry Telemetry Rhythm: Afib - Labs Result Diagrams: 09/14/18 08:40 09/16/18 07:51 Troponin/CKMB CK-MB (CK-2) 2.9 ng/mL (0-6.6) 09/12/18 18:28 Troponin I 0.074 ng/mL (< 0.028) H 09/13/18 01:15 - Assessment/Plan 1. Afib with RVR - HR well controlled with Coreg 3.125mg 1/2 tab BID; On ASA 81mg qd and Digoxin 0.125mg qd; no OAC due to hx of chronic Anemia and Crohn disease. 2. 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 EP consult for low EF. Possible cath or stress test once his Ca and K level are more stable; 3. AGUSTIN - unchanged 4. Hypokalemia - seen by torch cutter 5. Hypocalcemia - seen by torch cutter 6. Crohn disease 7. Chronic Anemia 8. BPH 9. Dizziness MAR reviewed * Echo on 09/13/2018 with EF 20-25%, grade I dd, Afib, mod dilated LA, mild ERA , mild MR, and trace AR. <addendum> The pt reported he weighed >180 lbs, which his is 119 lbs now. Will get the pt record from [facility] (abnormal weight lost due to cancer?) pt. seen and joey;l/ by me. No complaints. Chest clear. Irreg/irreg. Does not want cardiac cath at this time. Review of Systems - Review of Systems EENTM: reports: no symptoms reported Respiratory: reports: no symptoms reported Cardiac (ROS): reports: no symptoms reported ABD/GI: reports: no symptoms reported : reports: no symptoms reported Musculoskeletal: reports: no symptoms reported Skin: reports: no symptoms reported Neurological: reports: no symptoms reported
[2018-09-15] MEDS ORDERED: Potassium Chloride 20 MEQ TAB PO SCH (14:30)
[2018-09-15] MEDS ORDERED: Calcium Gluconate 4.6 MEQ in Sodium Chloride 0.9% 100 ML IVPB SCH (14:30)
--- NOTE | 2018-09-15 15:16 | PRG ---
DATE OF SERVICE: 09/15/2018 SUBJECTIVE: The patient is seen. OBJECTIVE: VITAL SIGNS: Noted with the vital signs; afebrile, temperature 97.9, pulse 86, respiratory rate of 18, O2 saturation 100% with blood pressure of 91/59. HEENT: Unremarkable. CARDIOVASCULAR: First and second heart sounds were heard. RESPIRATORY: Clear to auscultation. DIGESTIVE: Revealed a benign abdomen. Positive bowel sounds. EXTREMITIES: No peripheral edema. SKIN: No new gross rash. LYMPHATICS: No peripheral lymphadenopathy. LABORATORY INVESTIGATION: Showed a potassium of 3.4, calcium of 5.7, creatinine down to 1.02, albumin of 1.8. IMPRESSION: Multiple electrolyte abnormalities including hypocalcemia, hypomagnesemia, and hypokalemia. From all indication, these are all nutrition related in the context of possible poor GI absorption. PLAN: 1. We will continue to replete the calcium, the magnesium, and the potassium. 2. Further management will be dependent on the clinical course. Job ID: [id number]
--- NOTE | 2018-09-15 15:27 | PDOC.HOSPP ---
- Subjective Subjective: Mr. Box was seen today in follow-up of AFIB and CHF. He does not have any complaints today. He deneis chest pain or shortness of breath. He also denies having any diarrhea. - Objective Vital Signs & Weight: Vital Signs (12 hours) Temp Pulse Resp BP BP Pulse Ox 09/15/18 12:00 97.9 F 86 18 91/59 L 09/15/18 07:41 97.7 F 92 18 92/58 L 100 Weight Admit Weight 121 lb 8 oz Weight 119 lb 6.4 oz I&O: 09/14/18 09/15/18 09/16/18 06:59 06:59 06:59 Intake Total 480 1650 Output Total 352 1005 Balance 128 645 Result Diagrams: 09/14/18 08:40 09/15/18 12:09 ROS - Review of Systems All systems: All other ROS were reviewed and found negative. - Medication Medications: Active Medications Generic Name Dose Route Start Last Admin Trade Name Freq PRN Reason Stop Dose Admin Aspirin 81 mg 09/13/18 09:00 09/15/18 09:26 Ecotrin PO 81 mg DAILY ELIE Administration Calcitriol 0.25 mcg 09/13/18 09:00 09/15/18 09:26 Rocaltrol PO 0.25 mcg DAILY ELIE Administration Calcium Carbonate 1,000 mg 09/12/18 21:00 09/15/18 09:26 Tums PO 1,000 mg BID ELIE Administration Carvedilol 1.5625 mg 09/14/18 08:00 09/15/18 09:26 Coreg PO 1.5625 mg BID-WM ELIE Administration Cholecalciferol 1,000 units 09/13/18 09:00 09/15/18 09:26 Vitamin D3 PO 1,000 units DAILY ELIE Administration Digoxin 0.125 mg 09/15/18 09:00 09/15/18 09:26 Lanoxin PO 0.125 mg DAILY ELIE Administration Enoxaparin Sodium 40 mg 09/15/18 09:00 09/15/18 09:27 Lovenox SC 40 mg 0900 ELIE Administration Ergocalciferol 1.25 mg 09/13/18 09:00 09/13/18 11:07 Drisdol PO 1.25 mg Q7DAYS ELIE Administration Famotidine 20 mg 09/13/18 21:00 09/14/18 20:59 Pepcid PO 20 mg QPM ELIE Administration Magnesium Oxide 400 mg 09/14/18 21:00 09/15/18 09:26 Magnesium Oxide PO 400 mg BID ELIE Administration Sodium Chloride 10 ml 09/12/18 21:00 09/15/18 09:27 Flush - Normal Saline IVF 10 ml Q12HR ELIE Administration - Exam ill appearing Eye: PERRL, anicteric sclera Heart: RRR, no murmur, no gallops, no rubs, normal peripheral pulses Respiratory: CTAB, no wheezes, no rales, no ronchi, normal chest expansion, no tachypnea, normal percussion Gastrointestinal: soft, non-tender, non-distended, normal bowel sounds, no palpable masses, no hepatomegaly Extremities: no cyanosis, no clubbing, no edema Hosp A/P (1) Atrial fibrillation with RVR Code(s): I48.91 - UNSPECIFIED ATRIAL FIBRILLATION Status: Acute (2) AGUSTIN (acute kidney injury) Code(s): N17.9 - ACUTE KIDNEY FAILURE, UNSPECIFIED Status: Acute (3) Hypocalcemia Code(s): E83.51 - HYPOCALCEMIA Status: Acute (4) Nutritional deficiency Code(s): E63.9 - NUTRITIONAL DEFICIENCY, UNSPECIFIED Status: Chronic (5) Severe malnutrition Code(s): E43 - UNSPECIFIED SEVERE PROTEIN-CALORIE MALNUTRITION Status: Chronic (6) Systolic heart failure Code(s): I50.20 - UNSPECIFIED SYSTOLIC (CONGESTIVE) HEART FAILURE Status: Acute - Plan * AFIB with RVR- his heart rate has improved * Hypocalcemia, and Hypomagnesemia- continue to replace * Chronic systolic heart failure- clinically compensated * EP consult has been placed.
[2018-09-15] MEDS: Famotidine 20 MG TAB PO SCH (21:00)
[2018-09-16 08:41] LABS: Anion Gap 9 mmol/L (10-20); BUN (Urea Nitrogen) 18 mg/dL (8.4-25.7); Calc. Creatinine Clearance 46 mL/min (70-130); Carbon Dioxide 23 mmol/L (23-31); Chloride 107 mmol/L (98-107); Estimated GFR-MDRD 77; Glucose 92 mg/dL (83-110); Magnesium 1.1 mg/dL (1.6-2.6); Potassium 3.9 mmol/L (3.5-5.1); Sodium 135 mmol/L (136-145)
[2018-09-16 08:49] LABS: Calcium 5.7 mg/dL (7.8-10.44)
[2018-09-16] MEDS ORDERED: Iopamidol 370 76% 100 ML VIAL ONE (09:31)
[2018-09-16] MEDS: Carvedilol 3.125 MG TAB PO SCH ×2 (09:45→17:16)
[2018-09-16] MEDS ORDERED: Communication Order-Pharmacy FS SCH (09:45)
[2018-09-16] MEDS: Calcitriol 0.25 MCG CAP PO SCH (09:46)
[2018-09-16] MEDS: Aspirin 81 mg Enteric Coated Tablet PO SCH (09:46)
[2018-09-16] MEDS: Digoxin 0.125 MG TAB PO SCH (09:46)
[2018-09-16] MEDS: Calcium Carbonate 500 MG ChewTAB PO SCH ×4 (09:46→21:33)
[2018-09-16] MEDS: Magnesium Oxide 400 MG TAB PO SCH ×2 (09:47→21:29)
[2018-09-16] MEDS: Enoxaparin Sodium 40 MG/0.4 ML SYRINGE SC SCH (10:12)
[2018-09-16] MEDS ORDERED: Verapamil 5 MG/2 ML VIAL ONE (11:36)
[2018-09-16] MEDS ORDERED: Heparin 10,000 UNITS/1 ML VIAL ONE (11:36)
[2018-09-16] MEDS ORDERED: Lidocaine 1% (PF) 30 ML VIAL ONE (11:37)
[2018-09-16] MEDS ORDERED: Nitroglycerin 100MG/250ML BOT 250 ML ONE (11:37)
--- NOTE | 2018-09-16 12:32 | PDOC.CTH ---
Cardiology Progress Note - Subjective The pt seen and examined. No overnight events. No cardiac complaints. - Objective Vital Signs Temp Pulse Resp BP Pulse Ox 09/16/18 11:41 96.2 F L 85 18 89/53 L 97 09/16/18 09:46 76 09/16/18 09:35 98.5 F 76 18 84/55 L 100 09/16/18 03:26 97.9 F 80 17 85/54 L 96 Admit Weight 121 lb 8 oz Weight 119 lb 6.4 oz 09/15/18 09/16/18 09/17/18 06:59 06:59 06:59 Intake Total 1650 980 Output Total 1005 1000 Balance 645 -20 - Physical Examination General/Neuro: alert & oriented x3 Neck: no JVD present Lungs: CTA Heart: other: (irregular) Abdomen: soft Extremities: other: (No edema) - Telemetry Telemetry Rhythm: Afib - Labs Result Diagrams: 09/14/18 08:40 09/16/18 07:51 Troponin/CKMB CK-MB (CK-2) 2.9 ng/mL (0-6.6) 09/12/18 18:28 Troponin I 0.074 ng/mL (< 0.028) H 09/13/18 01:15 - Assessment/Plan 1. Afib with RVR - HR well controlled with Coreg 3.125mg 1/2 tab BID; On ASA 81mg qd and Digoxin 0.125mg qd; no OAC due to hx of chronic Anemia and Crohn disease. 2. 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 EP consult for low EF. Plan for C today by Dr Sousa. 3. AGUSTIN - managed by Solutions Manager 4. Hypokalemia - managed by Solutions Manager 5. Hypocalcemia - managed by Solutions Manager 6. Crohn disease 7. Chronic Anemia 8. BPH 9. Dizziness - stable 10. Abnormal Weight loss - The pt reported he weighed >180 lbs, which his is 119 lbs now. Will get the pt record from [facility] (abnormal weight lost due to cancer?) MAR reviewed * Echo on 09/13/2018 with EF 20-25%, grade I dd, Afib, mod dilated LA, mild ERA , mild MR, and trace AR. pt. seen and eval. by me. I agree with the A/P by the GRADUATION COACH. Pt. is now agreable fpor a cath. Plan to evaliate for severe CAD as an etiology of the CMY. Review of Systems - Review of Systems Constitutional: reports: no symptoms reported EENTM: reports: no symptoms reported Respiratory: reports: no symptoms reported Cardiac (ROS): reports: no symptoms reported ABD/GI: reports: no symptoms reported : reports: no symptoms reported Musculoskeletal: reports: no symptoms reported
--- NOTE | 2018-09-16 15:22 | CON ---
DATE OF CONSULTATION: REQUESTING PHYSICIAN: Jayson Weems MD. REASON FOR REQUEST: Atrial fibrillation. HISTORY OF PRESENT ILLNESS: Mr. Box is an 83-year-old gentleman, who is an inmate, has a history of Crohn disease. He presented to the hospital with shortness of breath and was found to be in atrial fibrillation with rapid ventricular response. He was dizzy that morning when he was first seen. PAST MEDICAL HISTORY: Significant for reported history of atrial fibrillation/flutter, chronic anemia, Crohn disease, prostatic hypertrophy, and gastroesophageal reflux disease. ALLERGIES: HE SAYS HE IS NOT ALLERGIC TO MEDICATIONS. MEDICATIONS: Mediations in the hospital include: 1. Aspirin. 2. Calcitriol. 3. Digoxin. 4. Metoprolol. FAMILY HISTORY: Reveals early and sudden cardiac . Mother of an NV. SOCIAL HISTORY: He is incarcerated. He does not drink, smoke, or use illicit mediations. REVIEW OF SYSTEMS: Reviewed. He denies nausea, vomiting, diarrhea, fever, chills, or change in vision or hearing. All others were negative other than included in the HPI. PHYSICAL EXAMINATION: VITAL SIGNS: Pulse is 85, blood pressure is 110/32. HEENT: Pupils are equal, round, and reactive to light and accommodation. Extraocular movements are intact. Nose; midline septum. No rhinorrhea or epistaxis. Throat, moist. No erythema or exudate. NECK: Supple without lymphadenopathy. There is JVD at 12 cm, 90 degrees. LUNGS: Reveal crackles bilaterally. ABDOMEN: Soft, nontender, and nondistended. Present bowel sounds. EXTREMITIES: Without cyanosis, clubbing, or edema. NEUROLOGIC: Cranial nerves 2 through 12 are grossly intact. DIAGNOSTIC STUDIES: Electrocardiogram; atrial fibrillation with rapid ventricular response. Cardiac catheterization reveals severe 2-vessel disease, apparently being considered for likely medical management. Ejection fraction was 20% to 25%. Echocardiogram also showed the estimated ejection fraction of 20% to 25%. Hemoglobin 10.8. Potassium 3.4, creatinine 1.32. IMPRESSION: 1. Persistent atrial fibrillation. 2. Systolic congestive heart failure. 3. Significant coronary artery disease. 4. History of Crohn disease. RECOMMENDATIONS: Mr. Box has atrial fibrillation. I would recommendation anticoagulation. Consideration can be given to AC and cardioversion. He will also require medical therapy for his congestive heart failure. In the meantime, consideration can be given for a LifeVest. I would recommend he undergo echocardiography after 3 months of medical therapy, and consideration can be given to ICD at that point. Job ID: [id number]
--- NOTE | 2018-09-16 16:12 | PDOC.HOSPP ---
- Subjective Subjective: Mr. Box was seen today in follow-up at approximately 10:45 AM . He does not have any complaints. He denies chest pain or difficulty breathing. He denies abdominal pain or diarrhea. - Objective Vital Signs & Weight: Vital Signs (12 hours) Temp Pulse Resp BP Pulse Ox 09/16/18 11:41 96.2 F L 85 18 89/53 L 97 09/16/18 09:46 76 09/16/18 09:35 98.5 F 76 18 84/55 L 100 Weight Admit Weight 121 lb 8 oz Weight 119 lb 6.4 oz I&O: 09/15/18 09/16/18 09/17/18 06:59 06:59 06:59 Intake Total 1650 980 Output Total 1005 1000 Balance 645 -20 Result Diagrams: 09/14/18 08:40 09/16/18 07:51 ROS - Review of Systems All systems: All other ROS were reviewed and found negative. - Medication Medications: Active Medications Generic Name Dose Route Start Last Admin Trade Name Nanette PRN Reason Stop Dose Admin Aspirin 81 mg 09/13/18 09:00 09/16/18 09:46 Ecotrin PO 81 mg DAILY ELIE Administration Calcitriol 0.25 mcg 09/13/18 09:00 09/16/18 09:46 Rocaltrol PO 0.25 mcg DAILY ELIE Administration Calcium Carbonate 1,000 mg 09/12/18 21:00 09/16/18 09:46 Tums PO 1,000 mg BID ELIE Administration Carvedilol 1.5625 mg 09/14/18 08:00 09/16/18 09:45 Coreg PO 1.5625 mg BID-WM ELIE Administration Cholecalciferol 1,000 units 09/13/18 09:00 09/16/18 09:46 Vitamin D3 PO 1,000 units DAILY ELIE Administration Digoxin 0.125 mg 09/15/18 09:00 09/16/18 09:46 Lanoxin PO 0.125 mg DAILY ELIE Administration Ergocalciferol 1.25 mg 09/13/18 09:00 09/13/18 11:07 Drisdol PO 1.25 mg Q7DAYS ELIE Administration Famotidine 20 mg 09/13/18 21:00 09/15/18 21:00 Pepcid PO 20 mg QPM ELIE Administration Magnesium Oxide 400 mg 09/14/18 21:00 09/16/18 09:47 Magnesium Oxide PO 400 mg BID ELIE Administration Sodium Chloride 10 ml 09/12/18 21:00 09/16/18 09:47 Flush - Normal Saline IVF 10 ml Q12HR ELIE Administration - Exam ill appearing (temporal wasting) Eye: PERRL, anicteric sclera Heart: RRR, no murmur, no gallops, no rubs, normal peripheral pulses Respiratory: CTAB, no wheezes, no rales, no ronchi, normal chest expansion Gastrointestinal: soft, non-tender, non-distended, normal bowel sounds Extremities: no cyanosis, no edema Hosp A/P (1) Atrial fibrillation with RVR Code(s): I48.91 - UNSPECIFIED ATRIAL FIBRILLATION Status: Acute (2) AGUSTIN (acute kidney injury) Code(s): N17.9 - ACUTE KIDNEY FAILURE, UNSPECIFIED Status: Acute (3) Hypocalcemia Code(s): E83.51 - HYPOCALCEMIA Status: Acute (4) Nutritional deficiency Code(s): E63.9 - NUTRITIONAL DEFICIENCY, UNSPECIFIED Status: Chronic (5) Severe malnutrition Code(s): E43 - UNSPECIFIED SEVERE PROTEIN-CALORIE MALNUTRITION Status: Chronic (6) Systolic heart failure Code(s): I50.20 - UNSPECIFIED SYSTOLIC (CONGESTIVE) HEART FAILURE Status: Acute - Plan * AFIB with RVR- his heart rate is stable * Chronic systolic heart failure- newly detected- will likely need Life-vest- EP has been consulted * Hypocalcemia and Mypomagnesemia- likely due to chronic manutrition, possible malabsorption- he denies diarrhea- continue to replace * Acute Kidney injury- improved
[2018-09-16] MEDS ORDERED: Magnesium 2 GM/50 ML 2 GM in Premix Bag 1 BAG IVPB SCH (16:45)
[2018-09-16] MEDS: Famotidine 20 MG TAB PO SCH (21:29)
--- NOTE | 2018-09-16 21:53 | PRG ---
DATE OF SERVICE: 09/16/2018 SUBJECTIVE: The patient is seen and examined with no new complaint. OBJECTIVE: VITAL SIGNS: Noted with the following vital signs; afebrile, temperature 96.2, pulse 85, respiratory rate of 18, blood pressure of 84/55, and O2 saturation 100%. HEENT: Unremarkable. CARDIOVASCULAR SYSTEM: First and second heart sounds were heard. RESPIRATORY SYSTEM: Clear to auscultation. DIGESTIVE SYSTEM: Revealed a benign abdomen. EXTREMITIES: No peripheral edema. SKIN: No new gross rash. LYMPHATICS: No peripheral lymphadenopathy. LABORATORY INVESTIGATION: Reviewed. Calcium of 5.7 and magnesium 1.1. IMPRESSION: Multiple electrolyte deficiency in the context of malabsorption/nutritional deficiency. PLAN: 1. We will continue to replete the calcium and the magnesium. We will recommend increasing the calcium repletion. 2. We will continue with vitamin D supplementation. Job ID: [id number]
[2018-09-17] MEDS ORDERED: Acetaminophen/Codeine 30-300mg Tablet PO PRN ×2 (05:26)
[2018-09-17] MEDS ORDERED: Sodium Chloride 0.9% 200 ML IV PRN (05:26)
[2018-09-17] MEDS ORDERED: Nitroglycerin 0.4 MG TAB (25 Tab Bottle) SL PRN (05:26)
[2018-09-17 07:12] LABS: Anion Gap 10 mmol/L (10-20); BUN (Urea Nitrogen) 20 mg/dL (8.4-25.7); Calc. Creatinine Clearance 38 mL/min (70-130); Calcium 6.3 mg/dL (7.8-10.44); Carbon Dioxide 27 mmol/L (23-31); Chloride 106 mmol/L (98-107); Estimated GFR-MDRD 61; Glucose 88 mg/dL (83-110); Magnesium 1.7 mg/dL (1.6-2.6); Potassium 4.3 mmol/L (3.5-5.1); Sodium 139 mmol/L (136-145)
[2018-09-17] MEDS: Calcitriol 0.25 MCG CAP PO SCH (08:20)
[2018-09-17] MEDS: Calcium Carbonate 500 MG ChewTAB PO SCH ×3 (08:20→20:23)
[2018-09-17] MEDS: Aspirin 81 mg Enteric Coated Tablet PO SCH (08:20)
[2018-09-17] MEDS: Digoxin 0.125 MG TAB PO SCH (08:21)
[2018-09-17] MEDS: Magnesium Oxide 400 MG TAB PO SCH ×2 (08:21→20:23)
[2018-09-17] MEDS: Carvedilol 3.125 MG TAB PO SCH ×2 (08:21→17:16)
[2018-09-17 13:40] VITALS: BMI 18.6
--- NOTE | 2018-09-17 17:57 | PDOC.CTH ---
Cardiology Progress Note - Subjective Pt.seen and eval. by me. No complaints today. No new events. - Objective Vital Signs Temp Pulse Resp BP BP Pulse Ox 09/17/18 16:55 97.6 F 67 20 110/62 09/17/18 11:41 97.7 F 76 18 102/65 92 L 09/17/18 08:21 85 09/17/18 08:15 98.8 F 85 18 90/57 L 97 Admit Weight 121 lb 8 oz Weight 119 lb 6.4 oz 09/16/18 09/17/18 09/18/18 06:59 06:59 06:59 Intake Total 980 150 Output Total 1000 175 Balance - - Physical Examination General/Neuro: alert & oriented x3 Neck: no JVD present Lungs: CTA Heart: other: (irreg/irreg.) Abdomen: soft - Telemetry Telemetry Rhythm: atrial fib. rate controlled. - Labs Result Diagrams: 09/14/18 08:40 09/17/18 06:33 Troponin/CKMB CK-MB (CK-2) 2.9 ng/mL (0-6.6) 09/12/18 18:28 Troponin I 0.074 ng/mL (< 0.028) H 09/13/18 01:15 - Assessment/Plan 1. Afib with RVR - HR well controlled with Coreg 3.125mg 1/2 tab BID; On ASA 81mg qd and Digoxin 0.125mg qd; no OAC due to hx of chronic Anemia and Crohn disease.Pt. was seen by EP and they have suggested OAC. This is somewhat worrisome in this pt. with malabsorption, hx. Chrons dz. and anemia. I believe he is at an increased risk of bleeding. Try ASA. 2. 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 EP consult for low EF. LHC indicated severe coronary calcifications. Not a candidate for PTCA/Stent or CABG. Medical management. 3. AGUSTIN - managed by Calendering Supervisor 4. Hypokalemia - managed by Calendering Supervisor 5. Hypocalcemia - managed by Calendering Supervisor 6. Crohn disease 7. Chronic Anemia 8. BPH 9. Dizziness - stable 10. Abnormal Weight loss - The pt reported he weighed >180 lbs, which his is 119 lbs now. Will get the pt record from [facility] (abnormal weight lost due to cancer?) MAR reviewed * Echo on 09/13/2018 with EF 20-25%, grade I dd, Afib, mod dilated LA, mild ERA , mild MR, and trace AR.
[2018-09-17] MEDS: Famotidine 20 MG TAB PO SCH (20:24)
--- NOTE | 2018-09-17 21:40 | PDOC.HOSPP ---
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 No new complaints currently. Awaiting LifeVest application. - Objective Vital Signs & Weight: Vital Signs (12 hours) Temp Pulse Resp BP Pulse Ox 09/17/18 16:55 97.6 F 67 20 110/62 09/17/18 11:41 97.7 F 76 18 102/65 92 L Weight Admit Weight 121 lb 8 oz Weight 119 lb 6.4 oz I&O: 09/16/18 09/17/18 09/18/18 06:59 06:59 06:59 Intake Total 980 150 Output Total 1000 175 Balance - Result Diagrams: 09/14/18 08:40 09/17/18 06:33 Additional Labs: Microbiology 09/15/18 03:00 Stool C. difficile GDH Antigen & Toxins - Final Laboratory Tests 09/12/18 09/13/18 09/13/18 15:13 05:00 05:00 Hgb 10.9 L 10.4 L Potassium 3.0 L Calcium 5.5 L* Magnesium 09/13/18 09/14/18 09/15/18 09:13 08:40 12:09 Hgb Potassium 3.4 L 3.4 L Calcium 5.6 L* 5.7 L* Magnesium 1.3 L 1.4 L 1.6 09/16/18 07:51 Hgb Potassium Calcium 5.7 L* Magnesium 1.1 L EKG Reviewed by me: Yes (Tele - SR) ROS - Review of Systems All systems: All other ROS were reviewed and found negative. - Medication Medications: Active Medications Generic Name Dose Route Start Last Admin Trade Name Nanette PRN Reason Stop Dose Admin Aspirin 81 mg 09/13/18 09:00 09/17/18 08:20 Ecotrin PO 81 mg DAILY ELIE Administration Calcitriol 0.25 mcg 09/13/18 09:00 09/17/18 08:20 Rocaltrol PO 0.25 mcg DAILY ELIE Administration Calcium Carbonate 1,000 mg 09/17/18 09:00 09/17/18 20:23 Tums PO 1,000 mg TID ELIE Administration Carvedilol 1.5625 mg 09/14/18 08:00 09/17/18 17:16 Coreg PO 1.5625 mg BID-WM ELIE Administration Cholecalciferol 1,000 units 09/13/18 09:00 09/17/18 08:21 Vitamin D3 PO 1,000 units DAILY ELIE Administration Digoxin 0.125 mg 09/15/18 09:00 09/17/18 08:21 Lanoxin PO 0.125 mg DAILY ELIE Administration Ergocalciferol 1.25 mg 09/13/18 09:00 09/13/18 11:07 Drisdol PO 1.25 mg Q7DAYS ELIE Administration Famotidine 20 mg 09/13/18 21:00 09/17/18 20:24 Pepcid PO 20 mg QPM ELIE Administration Magnesium Oxide 400 mg 09/14/18 21:00 09/17/18 20:23 Magnesium Oxide PO 400 mg BID ELIE Administration Sodium Chloride 10 ml 09/12/18 21:00 09/17/18 20:25 Flush - Normal Saline IVF 10 ml Q12HR ELIE Administration - Exam NAD, awake alert Eye: PERRL, anicteric sclera ENT: no oropharyngeal lesions, moist mucosa Neck: supple, symmetric, no JVD, no Thyromegaly Heart: no murmur, no gallops, no rubs, irregular Respiratory: CTAB, no rales, no ronchi Gastrointestinal: soft, non-tender, non-distended, normal bowel sounds, no palpable masses Extremities: no cyanosis, no clubbing, no edema Neurological: CN's grossly intact, no focal deficits Musculoskeletal: generalized weakness, diffuse muscle atrophy Psychiatric: normal affect Hosp A/P (1) Atrial fibrillation with RVR Code(s): I48.91 - UNSPECIFIED ATRIAL FIBRILLATION Status: Acute Plan: Continue Digoxin and ASA, rate-control strategy (2) AGUSTIN (acute kidney injury) Code(s): N17.9 - ACUTE KIDNEY FAILURE, UNSPECIFIED Status: Acute Plan: Improved, avoid nephrotoxic meds and limit contrast exposure, serial creatinine (3) Hypocalcemia Code(s): E83.51 - HYPOCALCEMIA Status: Acute Plan: Corrected Ca++ given Albumin level near low-normal range, monitor closely with Ca++ supplementation (4) Systolic heart failure Code(s): I50.20 - UNSPECIFIED SYSTOLIC (CONGESTIVE) HEART FAILURE Status: Chronic Qualifiers: Heart failure chronicity: acute on chronic Qualified Code(s): I50.23 - Acute on chronic systolic (congestive) heart failure Plan: Continue Digoxin/Coreg/ASA, LifeVest application pending (5) multiple electrolyte abnormalities Status: Chronic Plan: Electrolyte replacement, serial monitoring (6) Chronic anemia Code(s): D64.9 - ANEMIA, UNSPECIFIED Status: Chronic (7) Severe malnutrition Code(s): E43 - UNSPECIFIED SEVERE PROTEIN-CALORIE MALNUTRITION Status: Chronic Plan: Regular diet, Ensure/Boost - Plan PT/OT, manager social media, respiratory therapy, DVT proph w/SCDs Stable currently Await placement of LifeVest Continue Coreg/Digoxin/ASA Likely back to detention in 24h
--- NOTE | 2018-09-18 08:34 | PRG ---
DATE OF SERVICE: SUBJECTIVE: The patient is seen and examined. OBJECTIVE: VITAL SIGNS: Noted with the following vital signs; afebrile with temperature 97, pulse 76, respiratory rate of 18, blood pressure of 102/56. HEENT: Unremarkable. Job ID: [id number]
[2018-09-18] MEDS: Digoxin 0.125 MG TAB PO SCH (09:28)
[2018-09-18] MEDS: Calcium Carbonate 500 MG ChewTAB PO SCH ×3 (09:28→21:46)
[2018-09-18] MEDS: Calcitriol 0.25 MCG CAP PO SCH (09:28)
[2018-09-18] MEDS: Magnesium Oxide 400 MG TAB PO SCH ×2 (09:28→21:47)
[2018-09-18] MEDS: Aspirin 81 mg Enteric Coated Tablet PO SCH (09:29)
[2018-09-18] MEDS: Carvedilol 3.125 MG TAB PO SCH ×2 (09:29→18:08)
[2018-09-18] MEDS ORDERED: Sodium Chloride 0.9% 250 ML 200 ML IVPB SCH (11:00)
--- NOTE | 2018-09-18 13:34 | PDOC.CTH ---
Cardiology Progress Note - Subjective Pt. seen and eval. by me. No new events but has been hypotensive today. Asymptomatic. - Objective Vital Signs Temp Pulse Resp BP BP Pulse Ox 09/18/18 11:17 99.7 F H 92 16 92/55 L 98 09/18/18 09:28 89 09/18/18 08:34 97.9 F 89 18 74/54 L 98 09/18/18 08:25 98 09/18/18 04:00 97.5 F L 82 15 90/54 L 98 Admit Weight 121 lb 8 oz Weight 4.325 oz 09/17/18 09/18/18 09/19/18 06:59 06:59 06:59 Intake Total 150 75 Output Total 175 Balance -25 75 - Physical Examination General/Neuro: alert & oriented x3 Neck: no JVD present Lungs: CTA Heart: other: (irreg/irreg) Abdomen: NT/ND, soft - Telemetry Telemetry Rhythm: atrial fib. HR-60's. - Labs Result Diagrams: 09/14/18 08:40 09/17/18 06:33 Troponin/CKMB CK-MB (CK-2) 2.9 ng/mL (0-6.6) 09/12/18 18:28 Troponin I 0.074 ng/mL (< 0.028) H 09/13/18 01:15 - Assessment/Plan 1. Afib with RVR - HR well controlled with Coreg 3.125mg 1/2 tab BID; On ASA 81mg qd and Digoxin 0.125mg qd; no OAC due to hx of chronic Anemia, Crohn's disease and risk of falls..Pt. was seen by EP and they have suggested OAC. This is somewhat worrisome in this pt. with malabsorption, hx. Chrons dz. and anemia. I believe he is at an increased risk of bleeding. Try ASA. 2. 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 EP consult for low EF. LHC indicated severe coronary calcifications. Not a candidate for PTCA/Stent or CABG. Medical management. Awaiting Life-Vest. 3. AGUSTIN - managed by [employer] 4. Hypokalemia - managed by [employer] 5. Hypocalcemia - managed by [employer] 6. Crohn disease 7. Chronic Anemia 8. BPH 9. Dizziness - stable 10.Hypotension. He may be a little dry. The HR is also slower today. I will stop the digoxin. Continue low dose coreg. 11. Abnormal Weight loss - The pt reported he weighed >180 lbs, which his is 119 lbs now. Will get the pt record from [facility] (abnormal weight lost due to cancer?) 12. CAD. Severe LAD stenosis with heavy calcifications. Medical treatment only. MAR reviewed Once the Life-vest is fitted and the BP is stable, the pt. can be d/c'd back to the [facility].
--- NOTE | 2018-09-18 18:57 | PDOC.HOSPP ---
- Subjective Subjective: f/u for CM awaiting LifeVest application. Nsg reports hypotensive but asymptomatic. - Objective Vital Signs & Weight: Vital Signs (12 hours) Temp Pulse Resp BP BP Pulse Ox 09/18/18 15:47 99.1 F 83 16 87/54 L 96 09/18/18 11:17 99.7 F H 92 16 92/55 L 98 09/18/18 09:28 89 09/18/18 08:34 97.9 F 89 18 74/54 L 98 09/18/18 08:25 98 Weight Admit Weight 121 lb 8 oz Weight 4.325 oz I&O: 09/17/18 09/18/18 09/19/18 06:59 06:59 06:59 Intake Total 150 75 900 Output Total 175 300 Balance -25 75 600 Result Diagrams: 09/14/18 08:40 09/17/18 06:33 Additional Labs: Microbiology 09/15/18 03:00 Stool C. difficile GDH Antigen & Toxins - Final Laboratory Tests 09/12/18 09/13/18 09/13/18 15:13 05:00 05:00 Hgb 10.9 L 10.4 L Potassium 3.0 L Calcium 5.5 L* Magnesium 09/13/18 09/14/18 09/15/18 09:13 08:40 12:09 Hgb Potassium 3.4 L 3.4 L Calcium 5.6 L* 5.7 L* Magnesium 1.3 L 1.4 L 1.6 09/16/18 07:51 Hgb Potassium Calcium 5.7 L* Magnesium 1.1 L EKG Reviewed by me: Yes (Tele - SR) ROS - Review of Systems All systems: All other ROS were reviewed and found negative. - Medication Medications: Active Medications Generic Name Dose Route Start Last Admin Trade Name Freq PRN Reason Stop Dose Admin Aspirin 81 mg 09/13/18 09:00 09/18/18 09:29 Ecotrin PO 81 mg DAILY ELIE Administration Calcitriol 0.25 mcg 09/13/18 09:00 09/18/18 09:28 Rocaltrol PO 0.25 mcg DAILY ELIE Administration Calcium Carbonate 1,000 mg 09/17/18 09:00 09/18/18 15:50 Tums PO 1,000 mg TID ELIE Administration Carvedilol 1.5625 mg 09/14/18 08:00 08/02/19 18:08 Coreg PO Not Given BID-WM ELIE Cholecalciferol 1,000 units 09/13/18 09:00 09/18/18 09:28 Vitamin D3 PO 1,000 units DAILY ELIE Administration Ergocalciferol 1.25 mg 09/13/18 09:00 09/13/18 11:07 Drisdol PO 1.25 mg Q7DAYS ELIE Administration Famotidine 20 mg 09/13/18 21:00 09/17/18 20:24 Pepcid PO 20 mg QPM ELIE Administration Magnesium Oxide 400 mg 09/14/18 21:00 09/18/18 09:28 Magnesium Oxide PO 400 mg BID ELIE Administration Sodium Chloride 10 ml 09/12/18 21:00 09/18/18 09:31 Flush - Normal Saline IVF 10 ml Q12HR ELIE Administration - Exam NAD, awake alert Eye: PERRL, anicteric sclera ENT: normocephalic atraumatic, no oropharyngeal lesions Neck: supple, symmetric, no JVD, no Thyromegaly Heart: RRR, no murmur, no gallops, no rubs Respiratory: CTAB, no wheezes, no rales, no ronchi Gastrointestinal: soft, non-tender, non-distended, normal bowel sounds Extremities: no cyanosis, no clubbing Skin: normal turgor Neurological: CN's grossly intact, no new deficit Musculoskeletal: generalized weakness, diffuse muscle atrophy Hosp A/P (1) Atrial fibrillation with RVR Code(s): I48.91 - UNSPECIFIED ATRIAL FIBRILLATION Status: Acute Plan: Continue ASA/Carvedilol, SR currently (2) AGUSTIN (acute kidney injury) Code(s): N17.9 - ACUTE KIDNEY FAILURE, UNSPECIFIED Status: Acute Plan: Resolved, avoid nephrotoxic meds and limit contrast exposure (3) Hypocalcemia Code(s): E83.51 - HYPOCALCEMIA Status: Acute Plan: Corrected Ca++ near normal range (4) Systolic heart failure Code(s): I50.20 - UNSPECIFIED SYSTOLIC (CONGESTIVE) HEART FAILURE Status: Chronic Qualifiers: Heart failure chronicity: acute on chronic Qualified Code(s): I50.23 - Acute on chronic systolic (congestive) heart failure Plan: Continue supportive mgmt, daily weight, I/O's (5) multiple electrolyte abnormalities Status: Chronic (6) Chronic anemia Code(s): D64.9 - ANEMIA, UNSPECIFIED Status: Chronic Plan: stable, monitor H/H trend (7) Severe malnutrition Code(s): E43 - UNSPECIFIED SEVERE PROTEIN-CALORIE MALNUTRITION Status: Chronic - Plan PT/OT, director social, respiratory therapy, out of bed/ambulate, DVT proph w/ SCDs Stable currently Awaiting LifeVest application OOB/ROM exercises Limit anti-hypertensives Digoxin d/c'd Likely d/c in 24h
--- NOTE | 2018-09-18 20:54 | PRG ---
DATE OF SERVICE: 09/18/2018 SUBJECTIVE: The patient is seen and examined with no new complaint noted with the following vital signs. OBJECTIVE: VITAL SIGNS: Afebrile, temperature 99.7, pulse 92, respiratory rate of 16, O2 saturations of 98% with blood pressure 92/55. HEENT: Unremarkable. CARDIOVASCULAR SYSTEM: First and second heart sounds were heard. RESPIRATORY SYSTEM: Clear to auscultation. DIGESTIVE SYSTEM: Revealed a benign abdomen. Positive bowel sounds. EXTREMITIES: No peripheral edema. SKIN: No new gross rash. LYMPHATICS: No peripheral lymphadenopathy. IMPRESSION: Multiple electrolyte derangements in the context of poor malabsorption and poor p.o. intake. PLAN: 1. There is no chemistry today to re-evaluate the electrolytes, but we will continue with calcium and vitamin D supplementation. 2. Re-evaluate the patient's electrolytes. 3. Optimize hemodynamics. This seems to be running on the low side. 4. Further management to be dependent on the clinical course. Job ID: [id number]
[2018-09-18] MEDS: Famotidine 20 MG TAB PO SCH (21:46)
[2018-09-19] MEDS: Carvedilol 3.125 MG TAB PO SCH ×2 (09:30→16:03)
[2018-09-19] MEDS: Aspirin 81 mg Enteric Coated Tablet PO SCH (09:33)
[2018-09-19] MEDS: Magnesium Oxide 400 MG TAB PO SCH ×2 (09:33→22:27)
[2018-09-19] MEDS: Calcium Carbonate 500 MG ChewTAB PO SCH ×3 (09:33→22:27)
[2018-09-19] MEDS: Calcitriol 0.25 MCG CAP PO SCH (10:09)
[2018-09-19] MEDS: Lisinopril 2.5 MG TAB PO SCH (12:13)
--- NOTE | 2018-09-19 14:49 | PDOC.HOSPP ---
- Subjective Subjective: f/u for ICM awaiting LifeVest. Nsg reports diarrhea today with multiple loose stools. No new complaints from pt. - Objective Vital Signs & Weight: Vital Signs (12 hours) Temp Pulse Pulse Pulse Resp BP BP 09/19/18 12:29 84 82 119/69 100/58 L 09/19/18 12:13 80 09/19/18 12:00 98.7 F 80 18 09/19/18 07:52 98.4 F 75 16 09/19/18 04:00 97.5 F L 69 16 BP BP Pulse Ox Pulse Ox 09/19/18 12:29 98 09/19/18 12:13 09/19/18 12:00 119/70 99 09/19/18 07:52 102/60 97 09/19/18 04:00 90/55 L 98 Weight Admit Weight 121 lb 8 oz Weight 107 lb I&O: 09/18/18 09/19/18 09/20/18 06:59 06:59 06:59 Intake Total 75 1000 Output Total 575 Balance 75 425 Result Diagrams: 09/14/18 08:40 09/17/18 06:33 Additional Labs: Microbiology 09/15/18 03:00 Stool C. difficile GDH Antigen & Toxins - Final Laboratory Tests 09/12/18 09/13/18 09/13/18 15:13 05:00 05:00 Hgb 10.9 L 10.4 L Potassium 3.0 L Calcium 5.5 L* Magnesium 09/13/18 09/14/18 09/15/18 09:13 08:40 12:09 Hgb Potassium 3.4 L 3.4 L Calcium 5.6 L* 5.7 L* Magnesium 1.3 L 1.4 L 1.6 09/16/18 07:51 Hgb Potassium Calcium 5.7 L* Magnesium 1.1 L EKG Reviewed by me: Yes (Tele - SR) ROS - Review of Systems All systems: All other ROS were reviewed and found negative. - Medication Medications: Active Medications Generic Name Dose Route Start Last Admin Trade Name Freq PRN Reason Stop Dose Admin Aspirin 81 mg 09/13/18 09:00 09/19/18 09:33 Ecotrin PO 81 mg DAILY ELIE Administration Calcitriol 0.25 mcg 09/13/18 09:00 09/19/18 10:09 Rocaltrol PO 0.25 mcg DAILY ELIE Administration Calcium Carbonate 1,000 mg 09/17/18 09:00 09/19/18 09:33 Tums PO 1,000 mg TID ELIE Administration Carvedilol 1.5625 mg 09/14/18 08:00 09/19/18 09:30 Coreg PO 1.5625 mg BID-WM ELIE Administration Cholecalciferol 1,000 units 09/13/18 09:00 09/19/18 09:33 Vitamin D3 PO 1,000 units DAILY ELIE Administration Ergocalciferol 1.25 mg 09/13/18 09:00 09/13/18 11:07 Drisdol PO 1.25 mg Q7DAYS ELIE Administration Famotidine 20 mg 09/13/18 21:00 09/18/18 21:46 Pepcid PO 20 mg QPM ELIE Administration Lisinopril 2.5 mg 09/19/18 12:00 09/19/18 12:13 Zestril PO 2.5 mg 1200 ELIE Administration Magnesium Oxide 400 mg 09/14/18 21:00 09/19/18 09:33 Magnesium Oxide PO 400 mg BID ELIE Administration Sodium Chloride 10 ml 09/12/18 21:00 09/19/18 09:34 Flush - Normal Saline IVF 10 ml Q12HR ELIE Administration - Exam NAD, ill appearing Eye: PERRL, anicteric sclera ENT: normocephalic atraumatic, no oropharyngeal lesions, dry oral mucosa Neck: supple, symmetric, no JVD, no Thyromegaly Heart: RRR, no murmur, no gallops, no rubs Respiratory: CTAB, no wheezes, no rales, no ronchi Gastrointestinal: soft, non-tender, non-distended, normal bowel sounds, no palpable masses Extremities: no cyanosis, no clubbing, no edema Neurological: CN's grossly intact, no new deficit Musculoskeletal: generalized weakness, diffuse muscle atrophy Psychiatric: oriented to person Hosp A/P (1) Atrial fibrillation with RVR Code(s): I48.91 - UNSPECIFIED ATRIAL FIBRILLATION Status: Acute Plan: Rate controlled, continue ASA, Carvedilol (2) AGUSTIN (acute kidney injury) Code(s): N17.9 - ACUTE KIDNEY FAILURE, UNSPECIFIED Status: Acute Plan: Improved, avoid nephrotoxic meds (3) Hypocalcemia Code(s): E83.51 - HYPOCALCEMIA Status: Acute Plan: Calcium supplementation (4) Systolic heart failure Code(s): I50.20 - UNSPECIFIED SYSTOLIC (CONGESTIVE) HEART FAILURE Status: Chronic Qualifiers: Heart failure chronicity: acute on chronic Qualified Code(s): I50.23 - Acute on chronic systolic (congestive) heart failure Plan: ? End-stage process, LifeVest planned (5) multiple electrolyte abnormalities Status: Chronic (6) Chronic anemia Code(s): D64.9 - ANEMIA, UNSPECIFIED Status: Chronic (7) Severe malnutrition Code(s): E43 - UNSPECIFIED SEVERE PROTEIN-CALORIE MALNUTRITION Status: Chronic (8) Diarrhea Code(s): R19.7 - DIARRHEA, UNSPECIFIED Status: Acute Qualifiers: Diarrhea type: presumed infectious Qualified Code(s): R19.7 - Diarrhea, unspecified Plan: Stool culture, C. diff, Campylobacter, monitor output - Plan PT/OT, DVT proph w/SCDs Stable currently Check Stool studies Awaiting LifeVest Palliative care consult
[2018-09-19 17:08] LABS: QuantiFERON-TB Gold Plus Negative (Negative)
--- NOTE | 2018-09-19 21:44 | PRG ---
DATE OF SERVICE: 09/19/2018 SUBJECTIVE: The patient noted with the following vital signs. OBJECTIVE: VITAL SIGNS: Afebrile, temperature 98.1, pulse 89, respiratory rate of 16, O2 saturations are 95% with blood pressure 119/70. HEENT: Unremarkable. CARDIOVASCULAR SYSTEM: First and second heart sounds were heard. RESPIRATORY SYSTEM: Clear to auscultation. DIGESTIVE SYSTEM: Revealed a benign abdomen. EXTREMITIES: No peripheral edema. SKIN: No new gross rash. LYMPHATICS: No peripheral lymphadenopathy. IMPRESSION: 1. Marked multiple electrolyte derangements in the context of malabsorption. 2. Acute kidney injury, much improved. PLAN: The patient to continue with electrolyte repletion to renal function. Plan in the morning to re-evaluate the status of this patient's electrolytes. Further management to be dependent on the clinical course. Job ID: [id number]
[2018-09-19] MEDS: Famotidine 20 MG TAB PO SCH (22:27)
[2018-09-20 05:31] LABS: Albumin 1.5 g/dL (3.4-4.8); Anion Gap 7 mmol/L (10-20); BUN (Urea Nitrogen) 18 mg/dL (8.4-25.7); BUN/Creatinine Ratio 18.75; Calc. Creatinine Clearance 41 mL/min (70-130); Calcium 6.3 mg/dL (7.8-10.44); Carbon Dioxide 26 mmol/L (23-31); Chloride 109 mmol/L (98-107); Estimated GFR-MDRD 75; Glucose 74 mg/dL (83-110); Phosphorus 2.7 mg/dL (2.3-4.7); Potassium 4.1 mmol/L (3.5-5.1); Sodium 138 mmol/L (136-145)
[2018-09-20] MEDS: Carvedilol 3.125 MG TAB PO SCH ×2 (09:17→17:22)
[2018-09-20] MEDS: Calcitriol 0.25 MCG CAP PO SCH (09:18)
[2018-09-20] MEDS: Magnesium Oxide 400 MG TAB PO SCH ×2 (09:18→22:57)
[2018-09-20] MEDS: Aspirin 81 mg Enteric Coated Tablet PO SCH (09:18)
[2018-09-20] MEDS: Calcium Carbonate 500 MG ChewTAB PO SCH ×3 (09:19→22:42)
[2018-09-20] MEDS: Lisinopril 2.5 MG TAB PO SCH (12:03)
[2018-09-20] MEDS: Ergocalciferol 1.25 MG(50,000 UNITS) CAP PO SCH (12:03)
--- NOTE | 2018-09-20 16:33 | PDOC.HOSPP ---
- Subjective Subjective: f/u for CM awaiting LifeVest application. Remains hypotensive but asymptomatic. - Objective Vital Signs & Weight: Vital Signs (12 hours) Temp Pulse Pulse Pulse Resp BP BP 09/20/18 15:04 97.6 F 82 18 94/64 09/20/18 12:57 80 81 102/60 09/20/18 12:03 93 09/20/18 12:00 98.9 F 93 18 110/72 09/20/18 07:47 99.1 F 89 16 93/59 L Pulse Ox Pulse Ox 09/20/18 15:04 97 09/20/18 12:57 96 09/20/18 12:03 09/20/18 12:00 98 09/20/18 07:47 97 Weight Admit Weight 121 lb 8 oz Weight 113 lb I&O: 09/19/18 09/20/18 09/21/18 06:59 06:59 06:59 Intake Total 1000 700 50 Output Total 575 377 Balance 425 323 50 Result Diagrams: 09/14/18 08:40 09/20/18 04:52 Additional Labs: Microbiology 09/15/18 03:00 Stool C. difficile GDH Antigen & Toxins - Final Laboratory Tests 09/12/18 09/13/18 09/13/18 15:13 05:00 05:00 Hgb 10.9 L 10.4 L Potassium 3.0 L Calcium 5.5 L* Magnesium 09/13/18 09/14/18 09/15/18 09:13 08:40 12:09 Hgb Potassium 3.4 L 3.4 L Calcium 5.6 L* 5.7 L* Magnesium 1.3 L 1.4 L 1.6 09/16/18 07:51 Hgb Potassium Calcium 5.7 L* Magnesium 1.1 L EKG Reviewed by me: Yes (Tele - SR) ROS - Review of Systems All systems: All other ROS were reviewed and found negative. - Medication Medications: Active Medications Generic Name Dose Route Start Last Admin Trade Name Freq PRN Reason Stop Dose Admin Aspirin 81 mg 09/13/18 09:00 09/20/18 09:18 Ecotrin PO 81 mg DAILY ELIE Administration Calcitriol 0.25 mcg 09/13/18 09:00 09/20/18 09:18 Rocaltrol PO 0.25 mcg DAILY ELIE Administration Calcium Carbonate 1,000 mg 09/17/18 09:00 09/20/18 15:07 Tums PO 1,000 mg TID ELIE Administration Carvedilol 1.5625 mg 09/14/18 08:00 09/20/18 09:17 Coreg PO 1.5625 mg BID-WM ELIE Administration Cholecalciferol 1,000 units 09/13/18 09:00 09/20/18 09:18 Vitamin D3 PO 1,000 units DAILY ELIE Administration Ergocalciferol 1.25 mg 09/13/18 09:00 09/20/18 12:03 Drisdol PO 1.25 mg Q7DAYS ELIE Administration Famotidine 20 mg 09/13/18 21:00 09/19/18 22:27 Pepcid PO 20 mg QPM ELIE Administration Lisinopril 2.5 mg 09/19/18 12:00 09/20/18 12:03 Zestril PO 2.5 mg 1200 ELIE Administration Magnesium Oxide 400 mg 09/14/18 21:00 09/20/18 09:18 Magnesium Oxide PO 400 mg BID ELIE Administration Sodium Chloride 10 ml 09/12/18 21:00 09/20/18 09:19 Flush - Normal Saline IVF 10 ml Q12HR ELIE Administration - Exam awake alert, ill appearing Eye: PERRL, anicteric sclera ENT: normocephalic atraumatic, no oropharyngeal lesions Neck: supple, symmetric, no JVD, no Thyromegaly Heart: no gallops, no rubs, irregular Respiratory: CTAB, no wheezes, no rales, no ronchi Gastrointestinal: soft, non-tender, non-distended, normal bowel sounds, no palpable masses Extremities: no edema Skin: normal turgor Neurological: no new deficit Musculoskeletal: generalized weakness, diffuse muscle atrophy Psychiatric: oriented to person Hosp A/P (1) Atrial fibrillation with RVR Code(s): I48.91 - UNSPECIFIED ATRIAL FIBRILLATION Status: Acute Plan: Continue Coreg/ASA, rate-controlled currently (2) AGUSTIN (acute kidney injury) Code(s): N17.9 - ACUTE KIDNEY FAILURE, UNSPECIFIED Status: Acute Plan: Resolving, avoid nephrotoxic meds and limit contrast exposure (3) Hypocalcemia Code(s): E83.51 - HYPOCALCEMIA Status: Acute Plan: Improved, corrected Ca++ level improved (4) Systolic heart failure Code(s): I50.20 - UNSPECIFIED SYSTOLIC (CONGESTIVE) HEART FAILURE Status: Chronic Qualifiers: Heart failure chronicity: acute on chronic Qualified Code(s): I50.23 - Acute on chronic systolic (congestive) heart failure Plan: Stable, med mgmt (5) multiple electrolyte abnormalities Status: Chronic (6) Chronic anemia Code(s): D64.9 - ANEMIA, UNSPECIFIED Status: Chronic (7) Severe malnutrition Code(s): E43 - UNSPECIFIED SEVERE PROTEIN-CALORIE MALNUTRITION Status: Chronic (8) Diarrhea Code(s): R19.7 - DIARRHEA, UNSPECIFIED Status: Acute Qualifiers: Diarrhea type: presumed infectious Qualified Code(s): R19.7 - Diarrhea, unspecified Plan: Suspect functional, no current evidence of infectious process - Plan PT/OT, rn social services, DVT proph w/SCDs Stable currently Awaiting LifeVest application Continue Ca++ supplementation Start Florastor 250mg daily Loperamide PRN
[2018-09-20] MEDS ORDERED: Loperamide HCl 2 MG CAP PO PRN (16:37)
[2018-09-20] MEDS: Famotidine 20 MG TAB PO SCH (22:43)
[2018-09-21] MEDS: Calcitriol 0.25 MCG CAP PO SCH (08:22)
[2018-09-21] MEDS: Magnesium Oxide 400 MG TAB PO SCH (08:22)
[2018-09-21] MEDS: Calcium Carbonate 500 MG ChewTAB PO SCH ×2 (08:22→15:36)
[2018-09-21] MEDS: Aspirin 81 mg Enteric Coated Tablet PO SCH (08:23)
[2018-09-21] MEDS: Carvedilol 3.125 MG TAB PO SCH ×2 (08:23→18:07)
[2018-09-21] MEDS ORDERED: Saccharomyces boulardii 250 MG CAP PO SCH (09:00)
--- NOTE | 2018-09-21 13:16 | PDOC.CTH ---
Cardiology Progress Note - Subjective Pt. seen and eval. by me. No new events. remains in A-fib. with controlled rate. Some coughing today. Generalized weakness. - Objective Vital Signs Temp Pulse Pulse Resp BP BP BP 09/21/18 11:29 97.5 F L 64 16 09/21/18 09:46 84 109/69 09/21/18 07:41 98.0 F 74 18 98/65 09/21/18 05:32 100/59 L 09/21/18 03:50 83 100/66 BP BP Pulse Ox Pulse Ox 09/21/18 11:29 80/56 L 99 09/21/18 09:46 99 09/21/18 07:41 98 09/21/18 05:32 92/63 97/58 L 09/21/18 03:50 Admit Weight 121 lb 8 oz Weight 112 lb 6.4 oz 09/20/18 09/21/18 09/22/18 06:59 06:59 06:59 Intake Total 700 650 480 Output Total 377 250 Balance 323 400 480 - Physical Examination General/Neuro: alert & oriented x3 Neck: no JVD present Lungs: CTA Heart: other: (irreg/irreg.) Abdomen: NT/ND, soft - Telemetry Telemetry Rhythm: atrial-fib. - Labs Result Diagrams: 09/14/18 08:40 09/20/18 04:52 Troponin/CKMB CK-MB (CK-2) 2.9 ng/mL (0-6.6) 09/12/18 18:28 Troponin I 0.074 ng/mL (< 0.028) H 09/13/18 01:15 - Assessment/Plan 1. Afib with RVR - HR well controlled with Coreg 3.125mg 1/2 tab BID; On ASA 81mg qd and Digoxin 0.125mg qd; no OAC due to hx of chronic Anemia, Crohn's disease and risk of falls..Pt. was seen by EP and they have suggested OAC. This is somewhat worrisome in this pt. with malabsorption, hx. Chrons dz. and anemia. I believe he is at an increased risk of bleeding. Try ASA. 2. 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 EP consult for low EF. LHC indicated severe coronary calcifications. Not a candidate for PTCA/Stent or CABG. Medical management. Awaiting Life-Vest. 3. AGUSTIN - managed by [employer] 4. Hypokalemia - managed by [employer] 5. Hypocalcemia - managed by [employer] 6. Crohn disease 7. Chronic Anemia 8. BPH 9. Dizziness - stable 10.Hypotension. He may be a little dry. The HR is also slower today. I will stop the digoxin. Continue low dose coreg. 11. Abnormal Weight loss - The pt reported he weighed >180 lbs, which his is 119 lbs now. Will get the pt record from [facility] (abnormal weight lost due to cancer?) 12. CAD. Severe LAD stenosis with heavy calcifications. Medical treatment only. MAR reviewed Once the Life-vest is fitted and the BP is stable, the pt. can be d/c'd back to the group home.
[2018-09-21] MEDS: Lisinopril 2.5 MG TAB PO SCH ×2 (14:29→15:35)
[2018-09-21 15:34] VITALS: BP 100/69; TEMP 97.9
--- NOTE | 2018-09-22 04:05 | DIS ---
DATE OF ADMISSION: 09/12/2018 DATE OF DISCHARGE: 09/21/2018 DISCHARGE DIAGNOSES: 1. Atrial fibrillation with rapid ventricular response, rate controlled currently. 2. Acute kidney injury, resolving. 3. Hypocalcemia, improved. 4. Acute on chronic systolic congestive heart failure with ejection fraction of 20% to 25%. 5. Ischemic cardiomyopathy with ejection fraction of 20% to 25%. 6. Chronic anemia. 7. Severe malnutrition. 8. Diarrhea, functional, resolving. CONSULTATIONS: 1. Dr. Sousa with Cardiology Service. 2. Dr. Anton with Nephrology Service. PERTINENT LABORATORY AND X-RAY FINDINGS: Potassium ranged between 3.0 to 4.3, creatinine ranged between 0.94 to 1.73. Estimated GFR ranged between 38 to 77. Troponin I ranged between 0.047 to 0.074. BNP 212. CBC showed a white blood cell count ranged between 3.6 to 6.0, hemoglobin ranged between 10.4 to 10.9. Hepatitis A, B, and C panel nonreactive. QuantiFERON gold test negative on 09/13/2018. C difficile antigen toxin dated 09/15/2018, negative. Stool culture dated 09/19/2018, showed normal enteric quincy. Stool Hemoccult dated 09/19/2018, positive x1. Portable chest x-ray dated 09/12/2018, showed no acute cardiopulmonary process. Cardiac catheterization dated 09/16/2018, showed ejection fraction of 20% to 25%. 90% LAD and left circumflex occlusion. CT of the abdomen and pelvis dated 09/12/2018, showed no evidence of bowel obstruction. MRI of the brain dated 09/13/2018, showed no acute intracranial process. Mild chronic small-vessel ischemic changes. 2D transthoracic echocardiogram dated 09/13/2018, showed ejection fraction of 20% to 25%. Moderate left atrial enlargement. HOSPITAL COURSE: The patient was initially admitted after presenting with atrial fibrillation with rapid ventricular response with associated hypocalcemia and acute kidney injury. The patient was initially treated with Cardizem infusion in addition to magnesium sulfate and calcium gluconate. The patient continued on a Cardizem infusion with additional Lopressor 25 mg b.i.d. The patient underwent extensive evaluation for metabolic process including multiple electrolyte abnormalities, which were corrected with replacement therapy. The patient's renal function improved with supportive management and avoidance of nephrotoxic agents. The patient underwent cardiac evaluation including cardiac catheterization showing evidence of 2-vessel coronary artery disease and depressed ejection fraction of 20% to 25%. The patient received medical therapy including aspirin and Coreg; however due to hypotension, the Coreg dose was reduced. The patient was also evaluated by the Electrophysiology Service, however, recommendations at this time were for external defibrillator placement with LifeVest due to depressed ejection fraction. The patient underwent successful application of the LifeVest on 09/21/2018, without complication. The patient overall remained clinically stable during the hospital course with current telemetry monitoring showing atrial fibrillation with controlled rate. I have examined the patient at the time of discharge and discussed followup instructions. The patient verbalized understanding and agreement, ready for discharge on 09/21/2018. DISCHARGE MEDICATIONS: 1. Aspirin 81 mg p.o. daily. 2. Rocaltrol 0.25 mcg p.o. daily. 3. Calcium carbonate 1000 mg p.o. t.i.d. 4. Coreg 1.5625 mg p.o. b.i.d. 5. Vitamin D3 1000 units p.o. daily. 6. Ergocalciferol 1.25 mg p.o. q.7 days. 7. Lisinopril 2.5 mg p.o. daily. 8. Magnesium oxide 400 mg p.o. b.i.d. FOLLOWUP: The patient may follow up with the [facility] Unit on discharge. CONDITION ON DISCHARGE: Fair. ACTIVITY: Ad-malcolm. DIET: Regular. CODE STATUS: Full. DISPOSITION: Discharged to [facility], [facility] on 09/21/2018. TIME SPENT: Total time preparing and coordinating discharge, 35 minutes. Job ID: [id number]
--- NOTE | 2018-09-22 13:30 | EKG ---
Test Reason : Blood Pressure : / mmHG Vent. Rate : 114 BPM Atrial Rate : 120 BPM P-R Int : 000 ms QRS Dur : 074 ms QT Int : 310 ms P-R-T Axes : 000 055 -17 degrees QTc Int : 427 ms Atrial fibrillation with rapid ventricular response with premature ventricular or aberrantly conducte d complexes Abnormal ECG Confirmed by ROSHNI DEL CID DO ([id number]), features editor SHAYNE WHEAT ([id number]) on 09/22/2018 1:29:29 PM Referred By: Confirmed By:ROSHNI DEL CID DO
== END 2018-09-21 18:49 | disposition home or self-care (01) | DRG 286 ==
LOC: ERS 14:20 → 2NO 19:19 → OBSVTOIN 19:19
PROVIDERS: ADMIT Internal Medicine; ATTEND Internal Medicine
PROC: 4A023N7 Measurement of Cardiac Sampling and Pressure, Left Heart, Percutaneous Approach (ICD-10-PCS; principal; 2018-09-16)
PROC: B2111ZZ Fluoroscopy of Multiple Coronary Arteries using Low Osmolar Contrast (ICD-10-PCS; 2018-09-16)
PROC: B2151ZZ Fluoroscopy of Left Heart using Low Osmolar Contrast (ICD-10-PCS; 2018-09-16)
DX: I48.91 Unspecified atrial fibrillation (principal); E43 Unspecified severe protein-calorie malnutrition; I50.43 Acute on chronic combined systolic (congestive) and diastolic (congestive) heart failure; N17.9 Acute kidney failure, unspecified; K50.90 Crohn's disease, unspecified, without complications; E87.2 Acidosis; Z68.1 Body mass index [BMI] 19.9 or less, adult; K90.9 Intestinal malabsorption, unspecified; E83.51 Hypocalcemia; E87.6 Hypokalemia; D64.9 Anemia, unspecified; N40.0 Benign prostatic hyperplasia without lower urinary tract symptoms; K21.9 Gastro-esophageal reflux disease without esophagitis; E63.9 Nutritional deficiency, unspecified; E83.42 Hypomagnesemia; E21.3 Hyperparathyroidism, unspecified; I25.10 Atherosclerotic heart disease of native coronary artery without angina pectoris; I95.9 Hypotension, unspecified
CPT/HCPCS: 36415; 70551; 71045; 74176; 80048; 80053; 80069; 80074; 81001; 82274; 82306; 82378; 82553; 82607; 82728; 82746; 83540; 83550; 83630; 83690; 83735; 83880; 83970; 84100; 84165; 84166; 84484; 85025; 85610; 85730; 86480; 87045; 87046; 87324; 87389; 87449; 87899; 93005; 93306; 93458; 93798; 96361; 96365; 96366; 96368; 96375; 96376; C1769; G0103; J1160; J1644; J1650; J2001; J3475; J3490; Q9967

== ENCOUNTER 2018-09-23 18:14 | Inpatient (IN) | payer OTHER ==
[2018-09-23 19:09] LABS: #Lymphocytes 0.7 thou/uL (1.20-3.40); #Monocytes 0.3 thou/uL (0.11-0.59); #Neutrophils 10.7 thou/uL (1.40-6.50); %Basophils 0.1 % (0.0-1.0); %Eosinophils 0.2 % (0.0-10.0); %Lymphocytes 6.2 % (21.0-51.0); %Monocytes 2.8 % (0.0-10.0); %Neutrophils 90.6 % (42.0-75.0); Hemoglobin 9.2 g/dL (14.0-18.0); Mean Corpuscular HGB CONC 31.5 g/dL (32.0-36.0); Mean Corpuscular Hemoglobin 30.9 pg (27.0-31.0); Mean Corpuscular Volume 98.2 fL (78.0-98.0); Mean Platelet Volume 6.1 fL (7.4-10.4); Platelet Count 306 thou/uL (130-400); RBC Distribution Width 12.7 % (11.5-14.5); Red Blood Cell (RBC) Count 2.96 mill/uL (4.70-6.10); White Blood Cell (WBC) Count 11.8 thou/uL (4.8-10.8)
--- NOTE | 2018-09-23 19:09 | RAD ---
PORTABLE CHEST: HISTORY: Cough. COMPARISON: 09/14/2018. FINDINGS: No evidence of focal infiltrate. Vascular markings within the normal range. Heart and mediastinum u nremarkable. The left lung base is poorly evaluated. I cannot completely exclude a left basilar pro cess, which may be obscured by the cardiac silhouette. Upright PA and lateral views would be of bene fit if feasible. IMPRESSION: No evidence of acute process. Left lung base is poorly evaluated. POS: AGW
[2018-09-23 19:32] LABS: ALT (SGPT) Less than 7 U/L (8-55); AST (SGOT) 6 U/L (5-34); Albumin 1.6 g/dL (3.4-4.8); Alkaline Phosphatase 114 U/L (40-150); Anion Gap 9 mmol/L (10-20); BUN (Urea Nitrogen) 16 mg/dL (8.4-25.7); Bilirubin, Total 0.2 mg/dL (0.2-1.2); Calc. Creatinine Clearance 0 mL/min (70-130); Calcium 6.7 mg/dL (7.8-10.44); Carbon Dioxide 22 mmol/L (23-31); Chloride 111 mmol/L (98-107); Estimated GFR-MDRD 55; Globulin 2.8 g/dL (2.4-3.5); Glucose 120 mg/dL (83-110); Protein, Total 4.4 g/dL (5.8-8.1); Sodium 137 mmol/L (136-145)
[2018-09-23] MEDS ORDERED: Aspirin Chewable 81 MG TAB ONE (19:50)
[2018-09-23 19:54] LABS: CKMB 1.6 ng/mL (0-6.6)
[2018-09-23] MEDS ORDERED: Ondansetron ODT 4 MG TAB SL PRN (22:22)
[2018-09-23] MEDS ORDERED: Acetaminophen 325 MG TAB PO PRN (22:22)
[2018-09-23] MEDS ORDERED: Ondansetron PF 4 MG/2 ML Vial IVP PRN (22:22)
[2018-09-23] MEDS ORDERED: HYDROcodone/Acetaminophen 5/325 mg Tablet PO PRN ×2 (22:22)
[2018-09-23 22:42] LABS: Troponin I 0.018 ng/mL (< 0.028)
[2018-09-23 22:46] VITALS: BMI 20.5
[2018-09-23 23:21] LABS: Lactic Acid 1.1 mmol/L (0.5-2.2)
[2018-09-24 01:54] LABS: Troponin I 0.029 ng/mL (< 0.028)
[2018-09-24 03:13] LABS: #Lymphocytes 1.3 thou/uL (1.20-3.40); #Monocytes 0.3 thou/uL (0.11-0.59); #Neutrophils 5.9 thou/uL (1.40-6.50); %Basophils 0.2 % (0.0-1.0); %Eosinophils 0.4 % (0.0-10.0); %Lymphocytes 17.2 % (21.0-51.0); %Monocytes 3.7 % (0.0-10.0); %Neutrophils 78.5 % (42.0-75.0); Hemoglobin 7.9 g/dL (14.0-18.0); Mean Corpuscular HGB CONC 32.3 g/dL (32.0-36.0); Mean Corpuscular Hemoglobin 31.4 pg (27.0-31.0); Mean Corpuscular Volume 97.2 fL (78.0-98.0); Mean Platelet Volume 5.9 fL (7.4-10.4); Platelet Count 233 thou/uL (130-400); RBC Distribution Width 12.6 % (11.5-14.5); Red Blood Cell (RBC) Count 2.52 mill/uL (4.70-6.10); White Blood Cell (WBC) Count 7.5 thou/uL (4.8-10.8)
[2018-09-24 04:12] LABS: Anion Gap 7 mmol/L (10-20); BUN (Urea Nitrogen) 15 mg/dL (8.4-25.7); Calc. Creatinine Clearance 41 mL/min (70-130); Calcium 6.8 mg/dL (7.8-10.44); Carbon Dioxide 24 mmol/L (23-31); Chloride 114 mmol/L (98-107); Estimated GFR-MDRD 64; Glucose 72 mg/dL (83-110); Potassium 4.9 mmol/L (3.5-5.1); Sodium 140 mmol/L (136-145)
--- NOTE | 2018-09-24 07:59 | HP ---
PRIMARY CARE PHYSICIAN: The patient has no PCP. CODE STATUS: Full code. TIME OF EVALUATION: 229. CHIEF COMPLAINT: Evaluation due to LifeVest firing. HISTORY OF PRESENT ILLNESS: This is an 83-year-old male patient, recently discharged from the hospital due to CHF and cardiomyopathy. The patient presented to the ER due to the LifeVest shocking him x5 and associated hypotension. No other significant symptoms except for associated change in mental status . The patient has had some change in mentation in the past few weeks with no clear etiology. Symptoms were mild to moderate with no clear triggers, no alleviating factors. REVIEW OF SYSTEMS: CONSTITUTIONAL: No fever, chills, or generalized weakness. RESPIRATORY: No cough, sputum production, or shortness of breath. CARDIOVASCULAR: The patient has a LifeVest firing x5. No chest pain or palpitation. GASTROINTESTINAL: No nausea. No vomiting, diarrhea, or abdominal pain HEAD DOFFER: No dizziness, headache, or feeling lightheaded. GENITOURINARY: No burning on urination. EXTREMITIES: No leg swelling. All other systems were reviewed and negative except for the findings mentioned above. PAST MEDICAL HISTORY: Positive for anemia, atrial fibrillation, Crohn disease, BPH, GERD. SURGICAL HISTORY: Ankle surgery and tonsillectomy. PSYCHIATRIC HISTORY: No previous psych history. SOCIAL HISTORY: No alcohol. No drugs. No smoking history. FAMILY HISTORY: Reviewed, noncontributory to current presentation. ALLERGIES: NO KNOWN DRUG ALLERGIES. REPORTED MEDICATIONS: None updated. PHYSICAL EXAMINATION: VITAL SIGNS: Blood pressure 93/50 and on admission, patient's blood pressure was in 80s; heart rate 71; respiratory rate was 20; temperature 98.1; oxygen saturation 100% on room air. GENERAL APPEARANCE: The patient is alert and disoriented, in no acute distress. HEENT: Eyes, normal conjunctivae. Moist oral mucosa. Anicteric. No JVD. RESPIRATORY: Bilateral air entry. No rales. No wheezes. Symmetric expansion. CARDIOVASCULAR: Normal rate, regular rhythm. No murmurs. No gallop. No edema. ABDOMEN: Soft. Normal bowel sounds. MUSCULOSKELETAL: Baseline range of motion and strength. SKIN: Warm and intact. No pallor. No rash. No redness. Capillary refill seems to be intact. NEURO: No evidence of any new focal weakness. Cranial nerves seems to be intact. PSYCHIATRIC: The patient is in good mood. No anxiety. Suboptimal judgment. LABORATORY DATA: EKG was reviewed. The patient has atrial fibrillation with controlled RVR at a rate of 85, low-voltage QRS. X-ray showed no evidence of acute process. Left lung base is poorly evaluated, could be pneumonia. LABORATORY DATA: Labs are reviewed. White count 11.8, hemoglobin 9.2, MCV 98.2, platelet count 206. Chemistry; sodium 137, potassium 5.0, chloride 111, carbon dioxide 22, anion gap 9, BUN 16, creatinine 1.26, GFR 55, glucose 120, lactic acid 2.5, came down to 1.1, calcium is 6.7, total bilirubin 0.2. LFTs were negative. Troponin 0.032, come down to 0.018 and then 0.039. Beta-natriuretic peptide 236. Serum total protein 4.4, albumin 1.6. ASSESSMENT AND PLAN: The patient has been placed in the hospital with following medical problems: 1. Muscular arrhythmia triggering LifeVest shocks x5, will consult Cardiology for recommendations. The patient might benefit from AICD placement. 2. Acute encephalopathy, unclear etiology. We will do some workup, unclear if the patient had the symptoms before, his dementia has been getting worse slowly, however, we will look for any other etiology. 3. Hypotension. This is likely secondary to underlying arrhythmia, blood pressure has recovered, we will monitor. The patient seems to be stable. We will treat accordingly. 4. Atrial fibrillation with controlled rate, reconcile home medications. Chronic, stable. 5. Gastroesophageal reflux disease, reconcile home medications. 6. Deep venous thrombosis prophylaxis. Job ID: [id number]
[2018-09-24] MEDS ORDERED: Carvedilol 3.125 MG TAB PO SCH (08:00)
[2018-09-24] MEDS: Enoxaparin Sodium 40 MG/0.4 ML SYRINGE SC SCH (08:28)
[2018-09-24] MEDS: Magnesium Oxide 400 MG TAB PO SCH ×2 (08:28→20:06)
[2018-09-24] MEDS: Aspirin 81 mg Enteric Coated Tablet PO SCH (08:28)
--- NOTE | 2018-09-24 10:26 | PDOC.EVN ---
Event Note - Event Note Event Note: Livevest interrogation showed no discharge. We will continue usual medications. get Urinalysis. Continue telemetry. Possible discharge tomorrow if he remained stable.
[2018-09-24] MEDS: Lisinopril 2.5 MG TAB PO SCH (11:54)
[2018-09-24 14:00] LABS: Bilirubin Negative (Negative); Blood, Urine Negative (Negative); Clarity Clear (Clear); Glucose, Urine (Dipstick) Normal (Negative); Leukocyte Negative Leu/uL (Negative); Nitrite Negative (Negative); Protein, Urine (Dipstick) 20 mg/dL (Neg-Trace); Squamous Epithelial 0-3 HPF (0-3); Urobilinogen Normal mg/dL (Less than 2); WBC/HPF 0-3 HPF (0-3)
[2018-09-24 14:11] LABS: Bacteria/HPF None Seen HPF (None Seen); Mucous/LPF 1+ LPF (<2+)
[2018-09-24 14:13] LABS: Urine Culture Reflex No No
[2018-09-24] MEDS: Carvedilol 3.125 MG TAB PO SCH (20:06)
[2018-09-25 05:45] LABS: #Eosinphils 0.1 thou/uL (0.0-0.7); #Lymphocytes 1.1 thou/uL (1.20-3.40); #Monocytes 0.3 thou/uL (0.11-0.59); %Basophils 0.3 % (0.0-1.0); %Eosinophils 1.6 % (0.0-10.0); %Lymphocytes 19.2 % (21.0-51.0); %Monocytes 5.5 % (0.0-10.0); %Neutrophils 73.4 % (42.0-75.0); Hemoglobin 7.7 g/dL (14.0-18.0); Mean Corpuscular HGB CONC 31.5 g/dL (32.0-36.0); Mean Corpuscular Hemoglobin 31.1 pg (27.0-31.0); Mean Corpuscular Volume 98.7 fL (78.0-98.0); Mean Platelet Volume 6.2 fL (7.4-10.4); Platelet Count 220 thou/uL (130-400); RBC Distribution Width 12.9 % (11.5-14.5); Red Blood Cell (RBC) Count 2.48 mill/uL (4.70-6.10); White Blood Cell (WBC) Count 5.5 thou/uL (4.8-10.8)
[2018-09-25 06:02] LABS: Anion Gap 5 mmol/L (10-20); BUN (Urea Nitrogen) 14 mg/dL (8.4-25.7); Calc. Creatinine Clearance 44 mL/min (70-130); Calcium 6.4 mg/dL (7.8-10.44); Carbon Dioxide 26 mmol/L (23-31); Chloride 113 mmol/L (98-107); Estimated GFR-MDRD 69; Glucose 89 mg/dL (83-110); Magnesium 1.9 mg/dL (1.6-2.6); Sodium 140 mmol/L (136-145)
[2018-09-25] MEDS ORDERED: Sodium Chloride 0.9% 10 ML ONE (08:34)
[2018-09-25] MEDS: Aspirin 81 mg Enteric Coated Tablet PO SCH (10:29)
[2018-09-25] MEDS: Enoxaparin Sodium 40 MG/0.4 ML SYRINGE SC SCH (10:30)
[2018-09-25] MEDS: Magnesium Oxide 400 MG TAB PO SCH ×2 (10:30→21:03)
[2018-09-25] MEDS: Carvedilol 3.125 MG TAB PO SCH ×2 (10:39→21:03)
--- NOTE | 2018-09-25 12:33 | DIS ---
DATE OF ADMISSION: 09/23/2018 DATE OF DISCHARGE: 09/25/2018 PRIMARY CARE PHYSICIAN: [facility] doctor. DISCHARGE DIAGNOSES: 1. Ischemic cardiomyopathy with ejection fraction of 20%. 2. Severe coronary artery disease. 3. Atrial fibrillation with controlled ventricular rate. 4. Chronic hypotension. 5. Gastroesophageal reflux disease. 6. Chronic anemia. 7. Moderate to severe malnutrition. 8. LifeVest malfunction. HOSPITAL COURSE: The patient is an 83-year-old jail inmate with known history of coronary artery disease, who was recently hospitalized and discharged from this hospital on [facility] with a LifeVest for severe ischemic cardiomyopathy with ejection fraction of 20%. The patient was brought in due to alarm signal from the LifeVest suggestive of discharges. There was a concern for possible ventricular arrhythmia, triggering the LifeVest discharges. However, the patient's LifeVest was interrogated and there was no ventricular tachycardia or fibrillation, and the LifeVest actually did not discharge. It was realized that the handling of LifeVest in the jail was suboptimal, leading to the battery to and was beeping. The patient however was monitored overnight and he remained stable on usual medications and was subsequently discharged back to the jail. We had requested for [facility], so that the patient's LifeVest will be taken better care of since he has ischemic cardiomyopathy with ejection fraction of 20%. PHYSICAL EXAMINATION: VITAL SIGNS: Temperature 96.4, pulse 76, respiratory rate 16, SpO2 of 100% on room air, blood pressure is 90/85. GENERAL: Chronically ill-looking elderly male, in no distress. Afebrile and anicteric. HEENT: Normocephalic and atraumatic. CARDIOVASCULAR: Regular rhythm and rate with normal heart sounds. RESPIRATORY: Fair air entry bilaterally with few transmitted sounds. GI: Full, soft, nontender, nondistended with normal bowel sounds. EXTREMITIES: Trace to mild bilateral leg edema and elbow edema noted. NEUROLOGIC: Conscious, alert, oriented x3 with appropriate mental status. Cranial nerves 2 through 12 are grossly intact. DISPOSITION: [facility]. DISCHARGE CONDITION: Stable. DISCHARGE MEDICATIONS: 1. Ergocalciferol 1.25 mg q.7 days. 2. Aspirin 81 mg p.o. daily. 3. Calcitriol 0.25 mcg p.o. daily. 4. Calcium carbonate 1000 mg p.o. t.i.d. 5. Carvedilol 1.5625 mg p.o. b.i.d. 6. Lisinopril 2.5 mg p.o. daily. 7. Magnesium oxide 400 mg p.o. b.i.d. DISCHARGE FOLLOWUP: With [facility] doctor in three days. With biomaterials engineer in 2 weeks. Discharge took more than 35 minutes. Job ID: [id number]
[2018-09-25] MEDS: Lisinopril 2.5 MG TAB PO SCH (13:24)
--- NOTE | 2018-09-25 17:45 | PDOC.HOSPP ---
- Subjective Encounter Date: 09/25/18 Encounter Time: 17:43 Subjective: 83 y/o male with ischemic cardiomyopathy with EF of 20 recently discharged on Lifevest admitted due to lifevest discharges concerning for ventricular arrhthmia. Interrogation of the lifevest did not show ventricular arrhythmia nor evidence of lifevest discharge. Patient has remained stable. - Objective Vital Signs & Weight: Vital Signs (12 hours) Temp Pulse Resp BP BP Pulse Ox 09/25/18 15:53 97.6 F 92 16 90/61 99 09/25/18 13:24 84 110/69 09/25/18 12:00 97.4 F L 63 16 110/60 99 09/25/18 08:00 98 09/25/18 07:48 96.4 F L 76 16 90/85 100 Weight Admit Weight 123 lb Weight 123 lb I&O: 09/24/18 09/25/18 09/26/18 06:59 06:59 06:59 Intake Total 800 Output Total 275 Balance 525 Result Diagrams: 09/25/18 05:25 09/25/18 05:25 ROS - Medication Medications: Active Medications Generic Name Dose Route Start Last Admin Trade Name Freq PRN Reason Stop Dose Admin Aspirin 81 mg 09/24/18 09:00 09/25/18 10:29 Ecotrin PO 81 mg DAILY ELIE Administration Carvedilol 1.5625 mg 09/24/18 21:00 09/25/18 10:39 Coreg PO 1.5625 mg BID ELIE Administration Enoxaparin Sodium 40 mg 09/24/18 09:00 09/25/18 10:30 Lovenox SC 40 mg 0900 ELIE Administration Lisinopril 2.5 mg 09/24/18 12:00 09/25/18 13:24 Zestril PO 2.5 mg 1200 ELIE Administration Magnesium Oxide 400 mg 09/24/18 09:00 09/25/18 10:30 Magnesium Oxide PO 400 mg BID ELIE Administration - Exam awake alert General - other findings: chronically ill looking Eye: anicteric sclera ENT: normocephalic atraumatic Heart: RRR Respiratory: no wheezes, no ronchi Respiratory - other findings: Fair air entry bilaterally with some transmitted sound Extremities: 2+ LE edema Extremeties - other findings: edema of the elbows noted Neurological: CN's grossly intact Psychiatric: A&O x 3 Hosp A/P (1) Chronic systolic (congestive) heart failure Code(s): I50.22 - CHRONIC SYSTOLIC (CONGESTIVE) HEART FAILURE Status: Acute (2) Ischemic cardiomyopathy Code(s): I25.5 - ISCHEMIC CARDIOMYOPATHY Status: Acute (3) Paroxysmal atrial fibrillation Code(s): I48.0 - PAROXYSMAL ATRIAL FIBRILLATION Status: Acute (4) Uses LifeVest defibrillator Code(s): Z95.810 - PRESENCE OF AUTOMATIC (IMPLANTABLE) CARDIAC DEFIBRILLATOR Status: Acute (5) Diarrhea Code(s): R19.7 - DIARRHEA, UNSPECIFIED Status: Acute Qualifiers: Diarrhea type: presumed infectious Qualified Code(s): R19.7 - Diarrhea, unspecified (6) Chronic anemia Code(s): D64.9 - ANEMIA, UNSPECIFIED Status: Chronic - Plan Discharge back to [facility] but to the [facility] as it was felt that the lifevest alarm was from mal handling [facility] get C dif toxin assay
[2018-09-26 05:34] LABS: #Eosinphils 0.1 thou/uL (0.0-0.7); #Lymphocytes 1.4 thou/uL (1.20-3.40); #Monocytes 0.3 thou/uL (0.11-0.59); #Neutrophils 3.9 thou/uL (1.40-6.50); %Basophils 0.3 % (0.0-1.0); %Eosinophils 1.3 % (0.0-10.0); %Lymphocytes 23.9 % (21.0-51.0); %Neutrophils 68.5 % (42.0-75.0); Hemoglobin 7.9 g/dL (14.0-18.0); Mean Corpuscular HGB CONC 31.8 g/dL (32.0-36.0); Mean Corpuscular Hemoglobin 31.2 pg (27.0-31.0); Mean Platelet Volume 6.3 fL (7.4-10.4); Platelet Count 227 thou/uL (130-400); RBC Distribution Width 12.8 % (11.5-14.5); Red Blood Cell (RBC) Count 2.55 mill/uL (4.70-6.10); White Blood Cell (WBC) Count 5.7 thou/uL (4.8-10.8)
[2018-09-26 05:57] LABS: Anion Gap 5 mmol/L (10-20); BUN (Urea Nitrogen) 14 mg/dL (8.4-25.7); Calc. Creatinine Clearance 53 mL/min (70-130); Calcium 6.2 mg/dL (7.8-10.44); Carbon Dioxide 25 mmol/L (23-31); Chloride 113 mmol/L (98-107); Estimated GFR-MDRD 86; Glucose 73 mg/dL (83-110); Magnesium 1.9 mg/dL (1.6-2.6); Phosphorus 2.6 mg/dL (2.3-4.7); Potassium 4.1 mmol/L (3.5-5.1); Sodium 139 mmol/L (136-145)
[2018-09-26] MEDS: Enoxaparin Sodium 40 MG/0.4 ML SYRINGE SC SCH (09:03)
[2018-09-26] MEDS: Aspirin 81 mg Enteric Coated Tablet PO SCH (09:04)
[2018-09-26] MEDS: Magnesium Oxide 400 MG TAB PO SCH ×2 (09:06→20:43)
[2018-09-26] MEDS: Carvedilol 3.125 MG TAB PO SCH ×2 (09:09→20:44)
[2018-09-26] MEDS: Lisinopril 2.5 MG TAB PO SCH (14:07)
--- NOTE | 2018-09-26 16:25 | PDOC.HOSPP ---
- Subjective Encounter Date: 09/26/18 Encounter Time: 16:24 Subjective: 83 y/o male with ischemic cardiomyopathy with EF of 20 recently discharged on Lifevest admitted due to lifevest discharges concerning for ventricular arrhthmia. Interrogation of the lifevest did not show ventricular arrhythmia nor evidence of lifevest discharge. Patient has remained stable and was discharged. However we are waiting for [facility] arrangement to be concluded. - Objective Vital Signs & Weight: Vital Signs (12 hours) Temp Pulse Resp BP BP BP Pulse Ox 09/26/18 14:07 95 83/52 L 09/26/18 13:00 95 16 83/52 L 09/26/18 09:00 91/54 L 09/26/18 08:00 99 09/26/18 07:32 97.6 F 89 16 82/55 L 99 Weight Admit Weight 123 lb Weight 124 lb I&O: 09/25/18 09/26/18 09/27/18 06:59 06:59 06:59 Intake Total 800 1330 Output Total 275 1400 Balance 525 -70 Result Diagrams: 09/26/18 05:00 09/26/18 05:00 ROS - Medication Medications: Active Medications Generic Name Dose Route Start Last Admin Trade Name Freq PRN Reason Stop Dose Admin Aspirin 81 mg 09/24/18 09:00 09/26/18 09:04 Ecotrin PO 81 mg DAILY ELIE Administration Enoxaparin Sodium 40 mg 09/24/18 09:00 09/26/18 09:03 Lovenox SC 40 mg 0900 ELIE Administration Magnesium Oxide 400 mg 09/24/18 09:00 09/26/18 09:06 Magnesium Oxide PO 400 mg BID ELIE Administration - Exam awake alert Eye: anicteric sclera ENT: normocephalic atraumatic Neck: supple Heart: RRR Respiratory: no rales, no ronchi Gastrointestinal: soft, non-tender, non-distended, normal bowel sounds Extremities: no edema Extremeties - other findings: No leg edema but bilateral elbow edema is noted Neurological: CN's grossly intact, no focal deficits Hosp A/P (1) Ischemic cardiomyopathy Code(s): I25.5 - ISCHEMIC CARDIOMYOPATHY Status: Acute (2) Chronic systolic (congestive) heart failure Code(s): I50.22 - CHRONIC SYSTOLIC (CONGESTIVE) HEART FAILURE Status: Acute (3) Paroxysmal atrial fibrillation Code(s): I48.0 - PAROXYSMAL ATRIAL FIBRILLATION Status: Acute (4) Uses LifeVest defibrillator Code(s): Z95.810 - PRESENCE OF AUTOMATIC (IMPLANTABLE) CARDIAC DEFIBRILLATOR Status: Acute (5) Diarrhea Code(s): R19.7 - DIARRHEA, UNSPECIFIED Status: Acute Qualifiers: Diarrhea type: presumed infectious Qualified Code(s): R19.7 - Diarrhea, unspecified (6) Chronic anemia Code(s): D64.9 - ANEMIA, UNSPECIFIED Status: Chronic (7) Protein-calorie malnutrition, moderate Code(s): E44.0 - MODERATE PROTEIN-CALORIE MALNUTRITION Status: Acute - Plan Continue obversation and telemetry Awaiting approval for [facility] placement at [facility]
[2018-09-26] MEDS ORDERED: Loperamide HCl 2 MG CAP PO SCH (19:30)
[2018-09-27] MEDS: Magnesium Oxide 400 MG TAB PO SCH ×2 (09:02→21:39)
[2018-09-27] MEDS: Aspirin 81 mg Enteric Coated Tablet PO SCH (09:02)
[2018-09-27] MEDS: Carvedilol 3.125 MG TAB PO SCH ×2 (09:02→21:39)
[2018-09-27] MEDS: Enoxaparin Sodium 40 MG/0.4 ML SYRINGE SC SCH (09:02)
[2018-09-27] MEDS: Lisinopril 2.5 MG TAB PO SCH (11:30)
--- NOTE | 2018-09-27 13:35 | PDOC.HOSPP ---
- Subjective Encounter Date: 09/27/18 Encounter Time: 08:35 Subjective: 83 y/o male with ischemic cardiomyopathy with EF of 20 recently discharged on Lifevest admitted due to lifevest discharges concerning for ventricular arrhthmia. Interrogation of the lifevest did not show ventricular arrhythmia nor evidence of lifevest discharge. Patient has remained stable. Awaiting for [facility] arrangement to be concluded. - Objective Vital Signs & Weight: Vital Signs (12 hours) Temp Pulse Resp BP Pulse Ox 09/27/18 12:00 97.2 F L 76 16 82/57 L 97 09/27/18 11:30 90 09/27/18 08:00 96.7 F L 90 18 81/64 L 98 09/27/18 04:00 98.2 F 92 17 75/52 L 97 Weight Admit Weight 123 lb Weight 119 lb 14.4 oz I&O: 09/26/18 09/27/18 09/28/18 06:59 06:59 06:59 Intake Total 1330 850 Output Total 1400 1000 Balance -70 -150 Result Diagrams: 09/26/18 05:00 09/26/18 05:00 ROS - Medication Medications: Active Medications Generic Name Dose Route Start Last Admin Trade Name Freq PRN Reason Stop Dose Admin Aspirin 81 mg 09/24/18 09:00 09/27/18 09:02 Ecotrin PO 81 mg DAILY ELIE Administration Carvedilol 1.5625 mg 09/26/18 21:00 09/27/18 09:02 Coreg PO Not Given BID [facility] Enoxaparin Sodium 40 mg 09/24/18 09:00 09/27/18 09:02 Lovenox SC 40 mg 0900 ELIE Administration Lisinopril 2.5 mg 09/27/18 12:00 09/27/18 11:30 Zestril PO Not Given 1200 [facility] Magnesium Oxide 400 mg 09/24/18 09:00 09/27/18 09:02 Magnesium Oxide PO 400 mg BID ELIE Administration - Exam awake alert Eye: anicteric sclera ENT: normocephalic atraumatic, moist mucosa Neck: supple Heart: irregular Respiratory: no rales, no ronchi Respiratory - other findings: fair air entry bilaterally Gastrointestinal: soft, non-tender, non-distended, normal bowel sounds Extremities: no cyanosis, 1+ LE edema Extremeties - other findings: mild to moderate bilateral elbow edema. No leg edema Neurological: CN's grossly intact, no focal deficits Neurological - other findings: moves all limbs but weakly Hosp A/P (1) Ischemic cardiomyopathy Code(s): I25.5 - ISCHEMIC CARDIOMYOPATHY Status: Acute (2) Chronic systolic (congestive) heart failure Code(s): I50.22 - CHRONIC SYSTOLIC (CONGESTIVE) HEART FAILURE Status: Acute (3) Paroxysmal atrial fibrillation Code(s): I48.0 - PAROXYSMAL ATRIAL FIBRILLATION Status: Acute (4) Uses LifeVest defibrillator Code(s): Z95.810 - PRESENCE OF AUTOMATIC (IMPLANTABLE) CARDIAC DEFIBRILLATOR Status: Acute (5) Diarrhea Code(s): R19.7 - DIARRHEA, UNSPECIFIED Status: Acute Qualifiers: Diarrhea type: presumed infectious Qualified Code(s): R19.7 - Diarrhea, unspecified (6) Chronic anemia Code(s): D64.9 - ANEMIA, UNSPECIFIED Status: Chronic (7) Protein-calorie malnutrition, moderate Code(s): E44.0 - MODERATE PROTEIN-CALORIE MALNUTRITION Status: Acute - Plan Continue obversation and telemetry. Continue low dose coreg and lisinopril as permitted by BP Start oral supplement Awaiting approval for [facility] placement at [facility]
[2018-09-28] MEDS: Carvedilol 3.125 MG TAB PO SCH ×2 (08:29→20:54)
[2018-09-28] MEDS: Aspirin 81 mg Enteric Coated Tablet PO SCH (08:29)
[2018-09-28] MEDS: Magnesium Oxide 400 MG TAB PO SCH ×2 (08:29→20:55)
[2018-09-28] MEDS: Enoxaparin Sodium 40 MG/0.4 ML SYRINGE SC SCH (08:30)
[2018-09-28] MEDS: Lisinopril 2.5 MG TAB PO SCH (14:12)
--- NOTE | 2018-09-28 15:02 | PDOC.HOSPP ---
- Subjective Encounter Date: 09/28/18 Encounter Time: 15:02 Subjective: 83 y/o male with ischemic cardiomyopathy with EF of 20 recently discharged on Lifevest admitted due to lifevest discharges concerning for ventricular arrhthmia. Interrogation of the lifevest did not show ventricular arrhythmia nor evidence of lifevest discharge. Patient has remained stable. No lifevest discharge since admision. Awaiting for [facility] arrangement to be concluded. - Objective Vital Signs & Weight: Vital Signs (12 hours) Temp Pulse Resp BP BP Pulse Ox 09/28/18 14:12 93 09/28/18 12:00 97.0 F L 93 17 92/52 L 96 09/28/18 07:53 97 09/28/18 07:50 96.6 F L 91 17 98/59 L 97 09/28/18 03:56 97.9 F 90 18 88/59 L 95 Weight Admit Weight 123 lb Weight 123 lb 11.2 oz I&O: 09/27/18 09/28/18 09/29/18 06:59 06:59 06:59 Intake Total 850 1020 Output Total 1000 1000 Balance -150 20 Result Diagrams: 09/26/18 05:00 09/26/18 05:00 ROS - Medication Medications: Active Medications Generic Name Dose Route Start Last Admin Trade Name Nanette PRN Reason Stop Dose Admin Aspirin 81 mg 09/24/18 09:00 09/28/18 08:29 Ecotrin PO 81 mg DAILY ELIE Administration Carvedilol 1.5625 mg 09/26/18 21:00 09/28/18 08:29 Coreg PO 1.5625 mg BID ELIE Administration Enoxaparin Sodium 40 mg 09/24/18 09:00 09/28/18 08:30 Lovenox SC 40 mg 0900 ELIE Administration Lisinopril 2.5 mg 09/27/18 12:00 09/28/18 14:12 Zestril PO Not Given 1200 [facility] Magnesium Oxide 400 mg 09/24/18 09:00 09/28/18 08:29 Magnesium Oxide PO 400 mg BID ELIE Administration - Exam awake alert Eye: anicteric sclera ENT: normocephalic atraumatic Neck: supple, symmetric Heart: irregular Respiratory: no rales, no ronchi Respiratory - other findings: fair air entry bilaterally with no obvious crackles Gastrointestinal: soft, non-tender, non-distended, normal bowel sounds Extremities: no cyanosis Extremeties - other findings: mild bilateral elbow edema. No lower extremity edema Neurological: CN's grossly intact, no focal deficits Musculoskeletal: generalized weakness, diffuse muscle atrophy Psychiatric: normal affect, A&O x 3 Hosp A/P (1) Ischemic cardiomyopathy Code(s): I25.5 - ISCHEMIC CARDIOMYOPATHY Status: Acute (2) Chronic systolic (congestive) heart failure Code(s): I50.22 - CHRONIC SYSTOLIC (CONGESTIVE) HEART FAILURE Status: Acute (3) Paroxysmal atrial fibrillation Code(s): I48.0 - PAROXYSMAL ATRIAL FIBRILLATION Status: Acute (4) Uses LifeVest defibrillator Code(s): Z95.810 - PRESENCE OF AUTOMATIC (IMPLANTABLE) CARDIAC DEFIBRILLATOR Status: Acute (5) Diarrhea Code(s): R19.7 - DIARRHEA, UNSPECIFIED Status: Acute Qualifiers: Diarrhea type: presumed infectious Qualified Code(s): R19.7 - Diarrhea, unspecified (6) Chronic anemia Code(s): D64.9 - ANEMIA, UNSPECIFIED Status: Chronic (7) Protein-calorie malnutrition, moderate Code(s): E44.0 - MODERATE PROTEIN-CALORIE MALNUTRITION Status: Acute (8) Hypotension Status: Acute - Plan Continue obversation and telemetry. Continue low dose coreg and lisinopril as permitted by BP Awaiting approval for [facility] placement at [facility]
[2018-09-29 05:24] LABS: #Eosinphils 0.1 thou/uL (0.0-0.7); #Lymphocytes 1.4 thou/uL (1.20-3.40); #Monocytes 0.4 thou/uL (0.11-0.59); #Neutrophils 3.1 thou/uL (1.40-6.50); %Basophils 0.5 % (0.0-1.0); %Eosinophils 1.5 % (0.0-10.0); %Lymphocytes 27.5 % (21.0-51.0); %Monocytes 7.2 % (0.0-10.0); %Neutrophils 63.4 % (42.0-75.0); Hemoglobin 8.3 g/dL (14.0-18.0); Mean Corpuscular HGB CONC 32.7 g/dL (32.0-36.0); Mean Corpuscular Volume 97.6 fL (78.0-98.0); Mean Platelet Volume 6.4 fL (7.4-10.4); Platelet Count 296 thou/uL (130-400); RBC Distribution Width 13.2 % (11.5-14.5); Red Blood Cell (RBC) Count 2.59 mill/uL (4.70-6.10); White Blood Cell (WBC) Count 4.9 thou/uL (4.8-10.8)
[2018-09-29 05:49] LABS: Anion Gap 6 mmol/L (10-20); BUN (Urea Nitrogen) 20 mg/dL (8.4-25.7); Calc. Creatinine Clearance 54 mL/min (70-130); Calcium 6.2 mg/dL (7.8-10.44); Carbon Dioxide 26 mmol/L (23-31); Chloride 110 mmol/L (98-107); Estimated GFR-MDRD 87; Glucose 72 mg/dL (83-110); Potassium 4.2 mmol/L (3.5-5.1); Sodium 138 mmol/L (136-145)
[2018-09-29 09:27] VITALS: TEMP 97.5
[2018-09-29] MEDS: Aspirin 81 mg Enteric Coated Tablet PO SCH (09:29)
[2018-09-29] MEDS: Carvedilol 3.125 MG TAB PO SCH (09:29)
[2018-09-29] MEDS: Magnesium Oxide 400 MG TAB PO SCH (09:30)
[2018-09-29] MEDS: Enoxaparin Sodium 40 MG/0.4 ML SYRINGE SC SCH (09:30)
[2018-09-29 12:02] VITALS: BP 80/51
[2018-09-29] MEDS: Lisinopril 2.5 MG TAB PO SCH (12:02)
--- NOTE | 2018-09-30 08:39 | DIS ---
DATE OF ADMISSION: 09/23/2018 DATE OF DISCHARGE: 09/29/2018 PRIMARY CARE PHYSICIAN: [facility]. DISCHARGE DIAGNOSES: 1. Ischemic cardiomyopathy with ejection fraction of 20%. 2. Severe coronary artery disease. 3. Atrial fibrillation with controlled ventricular rate. 4. Chronic hypertension. 5. Moderate to severe protein-calorie malnutrition. 6. LifeVest malfunction.Unknown type of malfunction? inappropriate use 7. Chronic anemia. 8. Gastroesophageal reflux disease. 9. Physical deconditioning. HOSPITAL COURSE: The patient is an 83-year-old [facility] inmate with known history of coronary artery disease, who was recently hospitalized and [facility] with [facility]Vest for severe ischemic cardiomyopathy with ejection fraction of 20%. The patient was brought in due to alarm signal from the LifeVest suggestive of discharges. There was a concern for possible ventricular arrhythmia, triggering the LifeVest discharges. However, the patient's LifeVest was interrogated and there was no ventricular tachycardia or fibrillation, and the LifeVest actually did not discharge. It was realized that the handling of [facility]Vest in the [facility] was suboptimal, leading to the battery to and was beeping. The patient however was monitored overnight and he remained stable on usual medications and was subsequently [facility]. We had requested for [facility], so that the patient's LifeVest will be taken better care of since he has ischemic cardiomyopathy with ejection fraction of 20%. After waiting for more than 6 days for [facility] approval without one, and patient remained stable , decision was then made to send [facility] the [facility]. PHYSICAL EXAMINATION: VITAL SIGNS: Temperature 98.4, pulse 76, respiratory rate 16, SpO2 of 100% on room air, blood pressure is 93/55. GENERAL: Chronically ill-looking elderly male, in no distress. Afebrile and anicteric. HEENT: Normocephalic and atraumatic. CARDIOVASCULAR: Regular rhythm and rate with normal heart sounds. RESPIRATORY: Fair air entry bilaterally with few transmitted sounds. GI: Full, soft, nontender, nondistended with normal bowel sounds. EXTREMITIES: Trace to mild bilateral leg edema and elbow edema noted. NEUROLOGIC: Conscious, alert, oriented x3 with appropriate mental status. Cranial nerves 2 through 12 are grossly intact. DISPOSITION: Long Term. DISCHARGE CONDITION: Stable. DISCHARGE MEDICATIONS: 1. Ergocalciferol 1.25 mg q.7 days. 2. Aspirin 81 mg p.o. daily. 3. Calcitriol 0.25 mcg p.o. daily. 4. Calcium carbonate 1000 mg p.o. t.i.d. 5. Carvedilol 1.5625 mg p.o. b.i.d. 6. Lisinopril 2.5 mg p.o. daily. 7. Magnesium oxide 400 mg p.o. b.i.d. DISCHARGE FOLLOWUP: With [facility] doctor in three days. With cloud architect in 2 weeks. Discharge took more than 35 minutes. Job ID: [id number] MTDD
--- NOTE | 2018-10-01 08:55 | PQF ---
[employer] Crystal Reports Winform Viewer LORETTA MONREAL ISIDORO THOMPSON Jignesh [id number] [id number] CLINICAL DOCUMENTATION CLARIFICATION FORM: POST DISCHARGE Addendum to original discharge summary date: ____ Late entry note date: __ DATE: 10-01-2018 ATTN:Isidoro Snyder Obi Please exercise your independent, professional judgment in responding to the clarification form. Clinical indicators are provided on the bottom of this form for your review Please check appropriate box(s): Conflicting documentation was noted in the Medical Record, please clarify if patient is being treated/monitored for: [ ] Lifevest malfunction [ ] End of life replacement of Lifevest battery [ ] Other diagnosis please specify: [ X ] Unable to determine For continuity of documentation, please document condition throughout progress notes and discharge summary. Thank You. CLINICAL INDICATORS - SIGNS / SYMPTOMS/ LABS - DS 09/25 Dr. Thompson - Lifevest malfunction - DS 09/25 Dr. Thompson - It was realized that the handling of Lifevest in the senior living was suboptional, leading to the battery to and was beeping - H&P 09/23 Dr. Sharpe - CC: Evaluation due to Lifevest firing - H&P 09/23 Dr. Sharpe - presented in the ER due to Lifevest shocking him x5 - DS 09/25 Dr. Thompson - concern for possible ventricular arrhythmia, triggering the Lifevest discharges - DS 09/25 Dr. Thompson - Lifevest was interrogated and there was no ventricular tachycardia or fibrillation RISK FACTORS - CHF - H&P 09/23 Dr. Sharpe - Ischemic cardiomyopathy DS 09/25 Dr. Thompson - CAD DS 09/25 Dr. Thompson - Paroxysmal Afib PN 09/25 Dr. Thompson TREATMENT - Lifevest interrogation Event Note 09/23 Dr. Thompson - Aspirin 81 mg Oral - DS 09/25 Dr. Thompson - Carvedilol 1.5625mg Oral - DS 09/25 Dr. Thompson - Lisinopril 2.5 mg Oral - DS 09/25 Dr. Thompson (This form is maintained as a part of the permanent medical record) 2014 [employer]. All Rights Reserved Ladan [email or web address] [not provided] MTDD
--- NOTE | 2018-10-03 10:41 | EKG ---
Test Reason : Blood Pressure : / mmHG Vent. Rate : 085 BPM Atrial Rate : 258 BPM P-R Int : 000 ms QRS Dur : 074 ms QT Int : 332 ms P-R-T Axes : 000 035 025 degrees QTc Int : 395 ms Atrial fibrillation Low voltage QRS Nonspecific ST and T wave abnormality , probably digitalis effect Abnormal ECG Confirmed by ROB SHAW DO ([id number]), photograph editor SHAYNE WHEAT ([id number]) on 10/03/2018 10:40:40 AM Referred By: Confirmed By:ROB SHAW DO
== END 2018-09-29 14:23 | DRG 314 ==
LOC: ERS 18:14 → EEVIPCON 22:20 → 2NO 22:20
PROVIDERS: ADMIT Hospitalist; ATTEND Hospitalist
PROC: 4B02XTZ Measurement of Cardiac Defibrillator, External Approach (ICD-10-PCS; principal; 2018-09-23)
DX: Z45.09 Encounter for adjustment and management of other cardiac device (principal); E43 Unspecified severe protein-calorie malnutrition; I50.22 Chronic systolic (congestive) heart failure; G93.40 Encephalopathy, unspecified; Z95.811 Presence of heart assist device; I25.5 Ischemic cardiomyopathy; D64.9 Anemia, unspecified; N40.0 Benign prostatic hyperplasia without lower urinary tract symptoms; I95.89 Other hypotension; F03.90 Unspecified dementia, unspecified severity, without behavioral disturbance, psychotic disturbance, mood disturbance, and anxiety; K21.9 Gastro-esophageal reflux disease without esophagitis; R19.7 Diarrhea, unspecified; I25.10 Atherosclerotic heart disease of native coronary artery without angina pectoris; Z79.899 Other long term (current) drug therapy; Z79.82 Long term (current) use of aspirin; Z68.20 Body mass index [BMI] 20.0-20.9, adult; I48.0 Paroxysmal atrial fibrillation
CPT/HCPCS: 36415; 71045; 80048; 80053; 81001; 82140; 82553; 83605; 83735; 83880; 84100; 84484; 85025; 87040; 87324; 87449; 93005; 93798; 96360; J1650

== ENCOUNTER 2018-09-29 18:21 | Emergency (ER) | payer OTHER ==
[2018-09-29 19:06] LABS: #Eosinphils 0.1 thou/uL (0.0-0.7); #Lymphocytes 1.2 thou/uL (1.20-3.40); #Monocytes 0.6 thou/uL (0.11-0.59); %Basophils 0.1 % (0.0-1.0); %Eosinophils 0.8 % (0.0-10.0); %Lymphocytes 17.6 % (21.0-51.0); %Monocytes 8.1 % (0.0-10.0); %Neutrophils 73.4 % (42.0-75.0); Hemoglobin 8.3 g/dL (14.0-18.0); Mean Corpuscular HGB CONC 31.8 g/dL (32.0-36.0); Mean Corpuscular Volume 97.3 fL (78.0-98.0); Mean Platelet Volume 6.3 fL (7.4-10.4); Platelet Count 334 thou/uL (130-400); RBC Distribution Width 13.4 % (11.5-14.5); Red Blood Cell (RBC) Count 2.69 mill/uL (4.70-6.10); White Blood Cell (WBC) Count 6.8 thou/uL (4.8-10.8)
[2018-09-29 19:21] LABS: ALT (SGPT) 7 U/L (8-55); AST (SGOT) 9 U/L (5-34); Albumin 1.7 g/dL (3.4-4.8); Alkaline Phosphatase 108 U/L (40-150); Anion Gap 10 mmol/L (10-20); BUN (Urea Nitrogen) 25 mg/dL (8.4-25.7); Bilirubin, Total 0.2 mg/dL (0.2-1.2); Calc. Creatinine Clearance 0 mL/min (70-130); Calcium 6.1 mg/dL (7.8-10.44); Carbon Dioxide 23 mmol/L (23-31); Chloride 112 mmol/L (98-107); Estimated GFR-MDRD 68; Globulin 2.6 g/dL (2.4-3.5); Glucose 92 mg/dL (83-110); Potassium 4.6 mmol/L (3.5-5.1); Protein, Total 4.3 g/dL (5.8-8.1); Sodium 140 mmol/L (136-145)
[2018-09-29 20:41] LABS: Bilirubin Negative (Negative); Blood, Urine Negative (Negative); Clarity Clear (Clear); Glucose, Urine (Dipstick) Normal (Negative); Leukocyte Negative Leu/uL (Negative); Nitrite Negative (Negative); Protein, Urine (Dipstick) Negative (Neg-Trace); Urobilinogen Normal mg/dL (Less than 2)
[2018-09-29 20:50] LABS: Troponin I 0.019 ng/mL (< 0.028)
== END 2018-09-29 23:22 ==
LOC: ERS 18:21
DX: I50.9 Heart failure, unspecified (principal); R53.1 Weakness; D64.9 Anemia, unspecified; I48.91 Unspecified atrial fibrillation; N40.0 Benign prostatic hyperplasia without lower urinary tract symptoms; K21.9 Gastro-esophageal reflux disease without esophagitis
CPT/HCPCS: 36415; 81003; 83880; 84484; 93005

== ENCOUNTER 2024-01-15 15:27 | Inpatient (IN) | payer OTHER ==
[2024-01-15] MEDS ORDERED: Bisacodyl 5 MG TAB PO PRN (23:45)
[2024-01-15] MEDS ORDERED: Bisacodyl 10 MG SUPP PR PRN (23:45)
[2024-01-15] MEDS ORDERED: Acetaminophen 500 MG TAB PO PRN (23:47)
[2024-01-15] MEDS ORDERED: Calcium Carbonate 500 MG ChewTAB PO PRN (23:48)
[2024-01-15] MEDS ORDERED: cloNIDine 0.1 MG TAB PO PRN (23:49)
[2024-01-15] MEDS ORDERED: Promethazine 25 MG TAB PO PRN (23:49)
[2024-01-15] MEDS ORDERED: Artificial Tear Ophth Sol 15 ML BOT EA EYE PRN (23:50)
[2024-01-15] MEDS ORDERED: Benzonatate 100 MG CAP PO PRN (23:50)
[2024-01-16] MEDS: Carvedilol 3.125 MG TAB ONE (00:36)
[2024-01-16] MEDS: cefTRIAXone\\ROCEPHIN 1 GM in Sodium Chloride 0.9% 100 ML IVPB SCH (00:36)
[2024-01-16] MEDS: Simvastatin 10 MG TAB PO SCH ×2 (00:36→21:42)
[2024-01-16 04:30] LABS: #Basophils 0.03 10x3/uL (0.0-0.2); %Basophils 0.4 % (0.0-1.0); %Eosinophils 2.6 % (0.0-10.0); %Lymphocytes 16.7 % (21.0-51.0); %Monocytes 10.3 % (0.0-10.0); %Neutrophils 69.2 % (42.0-75.0); Hematocrit 31.6 % (42.0-52.0); Hemoglobin 10.2 g/dL (14.0-18.0); Mean Corpuscular HGB CONC 32.3 g/dL (32.0-36.0); Mean Corpuscular Hemoglobin 32.7 pg (27.0-31.0); Mean Corpuscular Volume 101.3 fL (78.0-98.0); Mean Platelet Volume 8.7 fL (7.4-10.4); Platelet Count 172 10x3/uL (130-400); RBC Distribution Width 14.2 % (11.5-14.5); Red Blood Cell (RBC) Count 3.12 mill/uL (4.70-6.10)
[2024-01-16 05:08] LABS: Anion Gap 13 mmol/L (10-20); BUN (Urea Nitrogen) 25 mg/dL (8.4-25.7); Calc. Creatinine Clearance 31 mL/min (70-130); Calcium 8.5 mg/dL (7.8-10.44); Carbon Dioxide 24 mmol/L (23-31); Chloride 110 mmol/L (98-107); Estimated GFR 49; Glucose 99 mg/dL (83-110); Potassium 3.6 mmol/L (3.5-5.1); Sodium 143 mmol/L (136-145)
[2024-01-16] MEDS: Ferrous Sulfate 325 MG TAB PO SCH (12:31)
[2024-01-16] MEDS: Ascorbic Acid 500 mg Chewable Tablet PO SCH (12:31)
[2024-01-16] MEDS: Aspirin 81 mg Enteric Coated Tablet PO SCH (12:31)
[2024-01-16] MEDS: Cyanocobalamin (Vitamin B-12) 1,000 MCG TAB PO SCH (12:32)
[2024-01-16] MEDS: Carvedilol 3.125 MG TAB PO SCH (12:32)
[2024-01-16] MEDS: azaTHIOprine 50 MG TAB PO SCH (12:32)
[2024-01-16] MEDS: Calcitriol 0.25 MCG CAP PO SCH (12:32)
[2024-01-16] MEDS: Lisinopril 5 MG TAB PO SCH (12:32)
[2024-01-16] MEDS: Pantoprazole DR 40 MG TAB PO SCH (12:33)
[2024-01-16] MEDS: Zinc Sulfate 220 MG CAP PO SCH (12:33)
[2024-01-16] MEDS: Haloperidol Lactate 5 MG/ML VIAL IM SCH ×2 (21:03→23:42)
[2024-01-16] MEDS: Simvastatin 5 MG TAB PO SCH (21:42)
[2024-01-17] MEDS: Enoxaparin 40 MG (0.4 mL) SYRINGE SC SCH (21:08)
[2024-01-17] MEDS: QUEtiapine 25 MG TAB PO SCH (21:08)
[2024-01-18 06:12] LABS: #Basophils Less than 0.03 10x3/uL (0.0-0.2); %Basophils 0.3 % (0.0-1.0); %Eosinophils 4.3 % (0.0-10.0); %Monocytes 7.8 % (0.0-10.0); %Neutrophils 69.8 % (42.0-75.0); Hematocrit 29.6 % (42.0-52.0); Hemoglobin 9.5 g/dL (14.0-18.0); Mean Corpuscular HGB CONC 32.1 g/dL (32.0-36.0); Mean Corpuscular Hemoglobin 32.5 pg (27.0-31.0); Mean Corpuscular Volume 101.4 fL (78.0-98.0); Mean Platelet Volume 8.8 fL (7.4-10.4); Platelet Count 169 10x3/uL (130-400); RBC Distribution Width 14.2 % (11.5-14.5); Red Blood Cell (RBC) Count 2.92 mill/uL (4.70-6.10)
[2024-01-18 06:47] LABS: Anion Gap 10 mmol/L (10-20); BUN (Urea Nitrogen) 21 mg/dL (8.4-25.7); Calc. Creatinine Clearance 36 mL/min (70-130); Calcium 8.2 mg/dL (7.8-10.44); Carbon Dioxide 25 mmol/L (23-31); Chloride 109 mmol/L (98-107); Estimated GFR 60; Glucose 93 mg/dL (83-110); Potassium 3.3 mmol/L (3.5-5.1); Sodium 141 mmol/L (136-145)
[2024-01-18] MEDS: Potassium Chloride 20 MEQ TAB PO SCH (08:44)
[2024-01-18] MEDS ORDERED: Amoxicillin/Potassium Clav 875 MG TAB PO SCH (09:00)
[2024-01-18] MEDS ORDERED: Ciprofloxacin 500 MG TAB PO SCH (20:00)
[2024-01-18] MEDS: Cipro 250 MG TAB PO SCH (20:22)
[2024-01-19 05:17] LABS: Anion Gap 11 mmol/L (10-20); BUN (Urea Nitrogen) 26 mg/dL (8.4-25.7); Calc. Creatinine Clearance 33 mL/min (70-130); Calcium 8.3 mg/dL (7.8-10.44); Carbon Dioxide 24 mmol/L (23-31); Chloride 108 mmol/L (98-107); Estimated GFR 53; Glucose 112 mg/dL (83-110); Sodium 139 mmol/L (136-145)
[2024-01-20] MEDS: Pantoprazole 40 MG VIAL IVP SCH
[2024-01-20] MEDS: QUEtiapine 25 MG TAB PO SCH (00:45)
[2024-01-20 07:01] LABS: Anion Gap 11 mmol/L (10-20); BUN (Urea Nitrogen) 30 mg/dL (8.4-25.7); Calc. Creatinine Clearance 33 mL/min (70-130); Calcium 8.5 mg/dL (7.8-10.44); Carbon Dioxide 27 mmol/L (23-31); Chloride 105 mmol/L (98-107); Estimated GFR 53; Glucose 91 mg/dL (83-110); Sodium 139 mmol/L (136-145)
[2024-01-22] MEDS ORDERED: Lansoprazole 30 MG/10 ML UDCUP PER TUBE SCH (09:00)
[2024-01-22] MEDS: Lansoprazole 30 MG/10 ML UDCUP PO SCH (18:15)
[2024-01-23 05:14] LABS: #Basophils 0.03 10x3/uL (0.0-0.2); %Basophils 0.3 % (0.0-1.0); %Eosinophils 0.6 % (0.0-10.0); %Monocytes 9.2 % (0.0-10.0); %Neutrophils 77.1 % (42.0-75.0); Hematocrit 30.2 % (42.0-52.0); Hemoglobin 9.7 g/dL (14.0-18.0); Mean Corpuscular HGB CONC 32.1 g/dL (32.0-36.0); Mean Corpuscular Hemoglobin 32.7 pg (27.0-31.0); Mean Corpuscular Volume 101.7 fL (78.0-98.0); Platelet Count 340 10x3/uL (130-400); RBC Distribution Width 14.2 % (11.5-14.5); Red Blood Cell (RBC) Count 2.97 mill/uL (4.70-6.10)
[2024-01-23 05:24] LABS: Anion Gap 12 mmol/L (10-20); BUN (Urea Nitrogen) 36 mg/dL (8.4-25.7); Calc. Creatinine Clearance 32 mL/min (70-130); Calcium 8.9 mg/dL (7.8-10.44); Carbon Dioxide 27 mmol/L (23-31); Chloride 105 mmol/L (98-107); Estimated GFR 51; Glucose 104 mg/dL (83-110); Potassium 5.2 mmol/L (3.5-5.1); Sodium 139 mmol/L (136-145)
[2024-01-23] MEDS: Lactated Ringer's 1,000 ML IV SCH (20:36)
[2024-01-24 04:54] LABS: #Basophils Less than 0.03 10x3/uL (0.0-0.2); %Basophils 0.3 % (0.0-1.0); %Eosinophils 1.2 % (0.0-10.0); %Lymphocytes 18.9 % (21.0-51.0); %Monocytes 9.2 % (0.0-10.0); %Neutrophils 69.2 % (42.0-75.0); Hematocrit 28.4 % (42.0-52.0); Mean Corpuscular HGB CONC 31.7 g/dL (32.0-36.0); Mean Corpuscular Hemoglobin 32.1 pg (27.0-31.0); Mean Corpuscular Volume 101.4 fL (78.0-98.0); Mean Platelet Volume 8.7 fL (7.4-10.4); Platelet Count 304 10x3/uL (130-400); RBC Distribution Width 13.9 % (11.5-14.5)
[2024-01-24 05:08] LABS: Anion Gap 11 mmol/L (10-20); BUN (Urea Nitrogen) 43 mg/dL (8.4-25.7); Calc. Creatinine Clearance 34 mL/min (70-130); Calcium 8.7 mg/dL (7.8-10.44); Carbon Dioxide 27 mmol/L (23-31); Chloride 106 mmol/L (98-107); Estimated GFR 56; Glucose 89 mg/dL (83-110); Potassium 4.4 mmol/L (3.5-5.1); Sodium 140 mmol/L (136-145)
[2024-01-25 05:49] LABS: #Basophils Less than 0.03 10x3/uL (0.0-0.2); %Basophils 0.3 % (0.0-1.0); %Eosinophils 2.4 % (0.0-10.0); %Lymphocytes 21.8 % (21.0-51.0); %Monocytes 6.8 % (0.0-10.0); %Neutrophils 67.4 % (42.0-75.0); Hemoglobin 9.2 g/dL (14.0-18.0); Mean Corpuscular HGB CONC 31.7 g/dL (32.0-36.0); Mean Corpuscular Hemoglobin 32.9 pg (27.0-31.0); Mean Corpuscular Volume 103.6 fL (78.0-98.0); Mean Platelet Volume 8.8 fL (7.4-10.4); Platelet Count 357 10x3/uL (130-400); RBC Distribution Width 14.4 % (11.5-14.5)
[2024-01-25 06:02] LABS: Anion Gap 12 mmol/L (10-20); BUN (Urea Nitrogen) 41 mg/dL (8.4-25.7); Calc. Creatinine Clearance 34 mL/min (70-130); Calcium 8.6 mg/dL (7.8-10.44); Carbon Dioxide 26 mmol/L (23-31); Chloride 107 mmol/L (98-107); Estimated GFR 56; Glucose 86 mg/dL (83-110); Potassium 4.3 mmol/L (3.5-5.1); Sodium 141 mmol/L (136-145)
[2024-01-26 09:30] VITALS: BP 120/71; TEMP 97.5
== END 2024-01-26 21:05 | DRG 689 ==
LOC: EEVIPCON 15:27 → 2NO 15:27 → T4-A 01-19 22:42
PROVIDERS: ADMIT Student in an Organized Health Care Education/Training Program; ATTEND Hospitalist
DX: N39.0 Urinary tract infection, site not specified (principal); U07.1 COVID-19; I13.0 Hypertensive heart and chronic kidney disease with heart failure and stage 1 through stage 4 chronic kidney disease, or unspecified chronic kidney disease; N17.9 Acute kidney failure, unspecified; I48.91 Unspecified atrial fibrillation; N40.0 Benign prostatic hyperplasia without lower urinary tract symptoms; I25.10 Atherosclerotic heart disease of native coronary artery without angina pectoris; F03.90 Unspecified dementia, unspecified severity, without behavioral disturbance, psychotic disturbance, mood disturbance, and anxiety; R53.81 Other malaise; W19.XXXA Unspecified fall, initial encounter; K21.9 Gastro-esophageal reflux disease without esophagitis; I50.9 Heart failure, unspecified; Z91.011 Allergy to milk products; Y93.89 Activity, other specified; Y92.148 Other place in prison as the place of occurrence of the external cause; Z79.82 Long term (current) use of aspirin; Z79.899 Other long term (current) drug therapy; D63.8 Anemia in other chronic diseases classified elsewhere
CPT/HCPCS: 36415; 71045; 80048; 82274; 85025; J0696; J1630; J1650; J2470; J7120; J7500

== ENCOUNTER 2024-01-30 01:58 | Inpatient (IN) | payer OTHER ==
[2024-01-30] MEDS ORDERED: Ondansetron PF 4 MG/2 ML Vial IVP PRN (06:20)
[2024-01-30] MEDS ORDERED: Glucagon 1 MG/ML KIT IM PRN (06:20)
[2024-01-30] MEDS ORDERED: Dextrose 5% in Water 1,000 ML IV PRN (06:20)
[2024-01-30] MEDS ORDERED: traMADol HCl 50 MG TAB PO PRN (06:20)
[2024-01-30] MEDS ORDERED: Dextrose 50% Abboject 50 ML SYRINGE SLOW IVP PRN (06:20)
[2024-01-30] MEDS ORDERED: Insulin Lispro 100 UNIT/ML 10 ML VIAL SC PRN (06:20)
[2024-01-30 06:48] VITALS: BMI 20.7
[2024-01-30 07:43] LABS: Troponin I 0.063 ng/mL (< 0.028)
[2024-01-30] MEDS ORDERED: Iopamidol 370 76% 100 ML VIAL ONE (10:44)
[2024-01-30 12:15] LABS: #Basophils Less than 0.03 10x3/uL (0.0-0.2); %Basophils 0.3 % (0.0-1.0); %Eosinophils 1.8 % (0.0-10.0); %Lymphocytes 16.9 % (21.0-51.0); %Monocytes 6.5 % (0.0-10.0); %Neutrophils 73.7 % (42.0-75.0); Hematocrit 29.6 % (42.0-52.0); Hemoglobin 9.1 g/dL (14.0-18.0); Mean Corpuscular HGB CONC 30.7 g/dL (32.0-36.0); Mean Corpuscular Hemoglobin 32.6 pg (27.0-31.0); Mean Corpuscular Volume 106.1 fL (78.0-98.0); Mean Platelet Volume 8.3 fL (7.4-10.4); Platelet Count 412 10x3/uL (130-400); RBC Distribution Width 14.1 % (11.5-14.5); Red Blood Cell (RBC) Count 2.79 mill/uL (4.70-6.10)
[2024-01-30 12:31] LABS: Anion Gap 15 mmol/L (10-20); BUN (Urea Nitrogen) 43 mg/dL (8.4-25.7); Calc. Creatinine Clearance 31 mL/min (70-130); Calcium 8.9 mg/dL (7.8-10.44); Carbon Dioxide 23 mmol/L (23-31); Chloride 114 mmol/L (98-107); Estimated GFR 51; Glucose 89 mg/dL (83-110); Magnesium 2.4 mg/dL (1.6-2.6); Potassium 4.6 mmol/L (3.5-5.1); Sodium 147 mmol/L (136-145)
[2024-01-30 12:32] LABS: Anion Gap 15 mmol/L (10-20); BUN (Urea Nitrogen) 44 mg/dL (8.4-25.7); Calc. Creatinine Clearance 31 mL/min (70-130); Calcium 8.8 mg/dL (7.8-10.44); Carbon Dioxide 22 mmol/L (23-31); Chloride 115 mmol/L (98-107); Estimated GFR 51; Glucose 89 mg/dL (83-110); Potassium 4.7 mmol/L (3.5-5.1); Sodium 147 mmol/L (136-145)
[2024-01-30 12:37] LABS: Troponin I 0.074 ng/mL (< 0.028)
[2024-01-30 18:37] LABS: Troponin I 0.055 ng/mL (< 0.028)
[2024-01-30] MEDS: Carvedilol 3.125 MG TAB PO SCH (21:34)
[2024-01-31 04:42] LABS: #Basophils Less than 0.03 10x3/uL (0.0-0.2); %Basophils 0.3 % (0.0-1.0); %Eosinophils 3.3 % (0.0-10.0); %Lymphocytes 18.8 % (21.0-51.0); Hematocrit 29.2 % (42.0-52.0); Hemoglobin 9.1 g/dL (14.0-18.0); Mean Corpuscular HGB CONC 31.2 g/dL (32.0-36.0); Mean Corpuscular Hemoglobin 32.4 pg (27.0-31.0); Mean Corpuscular Volume 103.9 fL (78.0-98.0); Mean Platelet Volume 8.6 fL (7.4-10.4); Platelet Count 382 10x3/uL (130-400); RBC Distribution Width 14.2 % (11.5-14.5); Red Blood Cell (RBC) Count 2.81 mill/uL (4.70-6.10)
[2024-01-31 05:08] LABS: Anion Gap 13 mmol/L (10-20); BUN (Urea Nitrogen) 39 mg/dL (8.4-25.7); Calc. Creatinine Clearance 31 mL/min (70-130); Carbon Dioxide 23 mmol/L (23-31); Chloride 113 mmol/L (98-107); Estimated GFR 52; Glucose 87 mg/dL (83-110); Potassium 4.3 mmol/L (3.5-5.1); Sodium 145 mmol/L (136-145)
[2024-01-31] MEDS ORDERED: Aspirin 81 mg Enteric Coated Tablet PO SCH (09:00)
[2024-01-31] MEDS: Aspirin 81 mg Enteric Coated Tablet PO SCH (10:00)
[2024-01-31] MEDS: azaTHIOprine 50 MG TAB PO SCH (10:00)
[2024-01-31] MEDS: Pantoprazole DR 40 MG TAB PO SCH (10:00)
[2024-01-31] MEDS: Acetaminophen 325 MG TAB PO PRN (20:50)
[2024-02-01] MEDS: FLU (Fluad Triv) TS24-25 (65UP)/MF59C/PF 45 MCG/0.5 ML Syringe IM ONE (23:57)
[2024-02-02 06:02] LABS: #Basophils 0.03 10x3/uL (0.0-0.2); %Basophils 0.4 % (0.0-1.0); %Eosinophils 3.7 % (0.0-10.0); %Lymphocytes 23.5 % (21.0-51.0); %Monocytes 8.1 % (0.0-10.0); %Neutrophils 63.5 % (42.0-75.0); Hematocrit 31.3 % (42.0-52.0); Hemoglobin 9.8 g/dL (14.0-18.0); Mean Corpuscular HGB CONC 31.3 g/dL (32.0-36.0); Mean Corpuscular Hemoglobin 31.5 pg (27.0-31.0); Mean Corpuscular Volume 100.6 fL (78.0-98.0); Mean Platelet Volume 8.6 fL (7.4-10.4); Platelet Count 360 10x3/uL (130-400); RBC Distribution Width 13.8 % (11.5-14.5); Red Blood Cell (RBC) Count 3.11 mill/uL (4.70-6.10)
[2024-02-02 06:37] LABS: Anion Gap 13 mmol/L (10-20); BUN (Urea Nitrogen) 29 mg/dL (8.4-25.7); Calc. Creatinine Clearance 27 mL/min (70-130); Calcium 8.9 mg/dL (7.8-10.44); Carbon Dioxide 22 mmol/L (23-31); Chloride 111 mmol/L (98-107); Estimated GFR 43; Glucose 95 mg/dL (83-110); Potassium 4.5 mmol/L (3.5-5.1); Sodium 141 mmol/L (136-145)
[2024-02-02] MEDS: Heparin 5,000 UNITS/ML VIAL SC SCH (08:42)
[2024-02-02] MEDS: Calcium Carbonate 600 MG TAB PO SCH (20:45)
[2024-02-02] MEDS: Simvastatin 10 MG TAB PO SCH (20:45)
[2024-02-02] MEDS: Ferrous Sulfate 325 MG TAB PO SCH (20:48)
[2024-02-03] MEDS: Lactated Ringer's 1,000 ML IV SCH (04:50)
[2024-02-03 05:19] LABS: #Basophils 0.03 10x3/uL (0.0-0.2); %Basophils 0.5 % (0.0-1.0); %Eosinophils 3.4 % (0.0-10.0); %Lymphocytes 30.1 % (21.0-51.0); %Monocytes 8.5 % (0.0-10.0); %Neutrophils 56.3 % (42.0-75.0); Hematocrit 29.6 % (42.0-52.0); Hemoglobin 9.4 g/dL (14.0-18.0); Mean Corpuscular HGB CONC 31.8 g/dL (32.0-36.0); Mean Corpuscular Hemoglobin 32.4 pg (27.0-31.0); Mean Corpuscular Volume 102.1 fL (78.0-98.0); Mean Platelet Volume 8.6 fL (7.4-10.4); Platelet Count 313 10x3/uL (130-400); RBC Distribution Width 13.7 % (11.5-14.5)
[2024-02-03 05:29] LABS: ALT (SGPT) 6 U/L (8-55); AST (SGOT) 13 U/L (5-34); Albumin 2.5 g/dL (3.4-4.8); Alkaline Phosphatase 76 U/L (40-110); Anion Gap 12 mmol/L (10-20); BUN (Urea Nitrogen) 29 mg/dL (8.4-25.7); Bilirubin, Total 0.4 mg/dL (0.2-1.2); Calc. Creatinine Clearance 31 mL/min (70-130); Calcium 8.5 mg/dL (7.8-10.44); Carbon Dioxide 21 mmol/L (23-31); Chloride 110 mmol/L (98-107); Estimated GFR 51; Globulin 3.4 g/dL (2.4-3.5); Glucose 81 mg/dL (83-110); Protein, Total 5.9 g/dL (5.8-8.1); Sodium 139 mmol/L (136-145)
[2024-02-03] MEDS ORDERED: Pantoprazole DR 40 MG TAB PO SCH (09:00)
[2024-02-03] MEDS: Calcitriol 0.25 MCG CAP PO SCH (09:29)
[2024-02-03] MEDS: Cyanocobalamin (Vitamin B-12) 1,000 MCG TAB PO SCH (09:31)
[2024-02-05 21:24] VITALS: BP 126/76; TEMP 98.2
== END 2024-02-05 21:19 | DRG 536 ==
LOC: EEVIPCON 03:44 → 2NO 03:44 → SURG A 02-01 13:17
PROVIDERS: ADMIT Surgery; ATTEND Internal Medicine
DX: S72.111A Displaced fracture of greater trochanter of right femur, initial encounter for closed fracture (principal); N18.9 Chronic kidney disease, unspecified; I50.9 Heart failure, unspecified; I48.91 Unspecified atrial fibrillation; N40.0 Benign prostatic hyperplasia without lower urinary tract symptoms; Z91.011 Allergy to milk products; R79.89 Other specified abnormal findings of blood chemistry
CPT/HCPCS: 36415; 71275; 80048; 80053; 83735; 84484; 85025; 93306; J1644; J7120; J7500; Q9967